=== PATIENT | male | born 1935 | race Caucasian/White ===

== ENCOUNTER 2021-07-30 23:58 | Observation (INO) ==
[2021-07-31] MEDS ORDERED: FUROSEMIDE 40 MG/4 ML VIAL IV ONE (00:43)
[2021-07-31 00:44] LABS: POC Blood Urea Nitrogen 42 mg/dL (6-20); POC CO2 24 mmol/L (22-30); POC Calcium, Ionized 1.15 mmEq/L (1.16-1.32); POC Chloride 99 mEq/L (96-108); POC Creatinine 1.7 mg/dL (0.6-1.2); POC Glucose, Random 126 mg/dL (70-105); POC Hematocrit 36 % (41-55); POC Potassium 4.6 mEql/L (3.3-5.1); POC Sodium 137 mEq/L (133-145)
--- NOTE | 2021-07-31 01:03 | Emergency Department Note ---
HPI General Chief complaint: Shortness of Breath/Dyspnea Stated complaint: sob Time Seen by Provider: 07/31/21 00:11 Source: EMS Mode of arrival: ambulatory Limitations: no limitations History of Present Illness HPI Narrative: Narrative: Patient is an 85-year-old male with history of CHF, chronic kidney disease, who presents with chief complaint of shortness of breath. Patient states over the past 5 days has been having some increasing shortness of breath as well as swelling in the bilateral lower extremities. He thinks it may be mild case of increased CHF. He states he gets worse when he lays flat at night, and otherwise denies no significant symptoms such as fever, headache, cough, nausea, vomiting, abdominal pain, changes in bowel movements or urinary symptoms. Related Data Home Medications Medication Instructions Recorded Confirmed saw palmetto 450 mg capsule 450 mg PO BID 08/21/15 07/30/21 spironolactone 25 mg tablet 25 mg PO QDAY 08/21/15 07/30/21 ascorbic acid (vitamin C) 1,000 mg 1 g PO BID tab 07/16/16 07/30/21 tablet cholecalciferol (vitamin D3) 25 1,000 unit PO QDAY cap 07/16/16 07/30/21 mcg (1,000 unit) capsule magnesium oxide 400 mg (241.3 mg 400 mg PO QDAY 07/16/16 07/30/21 magnesium) tablet omega-3 fatty acids 1,000 mg 1,250 mg PO BID cap 07/16/16 07/30/21 capsule apixaban 5 mg tablet 2.5 mg PO BID tab 06/24/21 07/30/21 trazodone 100 mg tablet 100 mg PO QHS PRN 06/24/21 07/30/21 valsartan 40 mg tablet 20 mg PO QDAY tab 06/24/21 07/30/21 tamsulosin 0.4 mg capsule 0.4 mg PO .EOD cap 06/30/21 07/30/21 torsemide 20 mg tablet 20 mg PO BID tab 06/30/21 07/30/21 torsemide 20 mg tablet 20 mg PO BID tab 06/30/21 07/30/21 Previous Rx's Medication Instructions Recorded Alive men's 50+ 1 mg PO QDAY #30 07/16/16 Brain--Mt-HD 950 mg PO QDAY #30 07/16/16 Florajen 3 probiotics 1 mg PO QDAY #30 07/16/16 melatonin 10 mg capsule 10 mg PO HS PRN #30 cap 07/16/16 sennosides 8.6 mg-docusate sodium 1 tab PO BID PRN #2 tab 07/16/16 50 mg tablet polyethylene glycol 3350 [Miralax] 17 g PO QDAY #30 each 12/11/20 allopurinol 100 mg tablet See Rx Instructions .ROUTE 06/18/21 .COMPLEX #30 tab metoprolol succinate 25 mg 12.5 mg PO QDAY #30 tab 06/30/21 tablet,extended release 24 hr benzonatate 100 mg capsule 100 mg PO Q8H PRN #20 cap 07/30/21 Allergies Allergy/AdvReac Type Severity Reaction Status Date / Time codeine AdvReac Severe Nausea Verified 07/30/21 14:24 Review of Systems ROS ROS Narrative: Narrative: All systems ED: reviewed and negative except as stated. 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) Pacemaker (Chronic) H/O adenoidectomy (Chronic) S/P foot surgery, right (Chronic) History of nasal septoplasty (Chronic 01/24/13) Hx of tonsillectomy (Chronic) Anorexia (Chronic) Dysphagia (Chronic) Insomnia (Chronic) Lentigo (Chronic) Prostate hypertrophy (Chronic) Seborrheic keratosis (Chronic) Weight loss (Chronic) Constipation (Acute) Hypotension (Chronic) Incomplete bladder emptying (Acute) Elevated uric acid in blood (Acute) Depression (Chronic) HFrEF (heart failure with reduced ejection fraction) (Chronic) CKD (chronic kidney disease) stage 3, GFR 30-59 ml/min (Chronic) Congestive heart failure (Acute) Moderate to severe mitral regurgitation (Acute) Severe tricuspid valve regurgitation (Acute) Abdominal pain (Acute) Constipation (Acute) Congestive heart failure (Acute) BPH loc w urin obs/LUTS (Acute) Acute left-sided thoracic back pain (Acute) Medical History Actinic keratosis Allergic rhinitis Anorexia Atrial fibrillation BPH (benign prostatic hypertrophy) with urinary obstruction Bradycardia CKD (chronic kidney disease) stage 3, GFR 30-59 ml/min Cough Depression PHQ-9: 13 02/2021 Dysphagia Dysthymic disorder Elevated uric acid in blood GERD (gastroesophageal reflux disease) HFrEF (heart failure with reduced ejection fraction) Hyperlipidemia Insomnia Ischemic heart disease Lentigo Benign Mastodynia Moderate to severe mitral regurgitation Prostate hypertrophy Continue tamsulosin 0.4 mg daily and double up on days where the stream seems to be slowing down Schedule for cystoscopy as an outpatient in anticipation of possible intervention in the future to include UroLift Pulmonary nodule Seborrheic keratosis Severe tricuspid valve regurgitation Weight loss Surgical History H/O adenoidectomy History of nasal septoplasty (01/24/13) Dr. Stephens Hx of tonsillectomy Pacemaker Pacemaker replaced 02/2010 S/P foot surgery, right 1986, broke heel, accident, fell off a truck Family History Daughter Malignant neoplasm of breast Unknown Hypertension Coronary artery disease Social History Smoking Status: Former smoker Alcohol Intake Frequency: does not drink Substance Use: does not use Exam Narrative Narrative: Narrative: Patient is sitting up in bed, talking normally and appropriately. He does not appear to be in acute discomfort or distress General Limitations: no limitations Head Head: Present atraumatic and normocephalic Eye Eye: Present normal appearance, PERRL and EOMI; Absent scleral icterus and conjunctival injection ENT ENT: Present normal oropharynx and mucous membranes moist Neck Neck: Present full ROM and trachea midline; Absent tenderness and lymphadenopathy Chest Chest: Present symmetric chest wall rise Respiratory Respiratory: Present normal lung sounds bilaterally; Absent respiratory distress, rales/crackles, wheezes, stridor and accessory muscle use Cardiovascular Cardiovascular: Present regular rate and normal rhythm; Absent systolic murmur and diastolic murmur Adbominal Abdominal: Present soft; Absent tenderness, guarding, rebound, rigidity and mass Extremities Extremities: Present pedal edema and pretibial edema; Absent tenderness and calf tenderness Back Back: Absent CVA tenderness (R), CVA tenderness (L) and spinous process tenderness Neurological Neurological: Present alert and oriented X3 Psychiatric Psychiatric: Present normal affect and normal mood Skin Skin: Present warm (WNL) and dry Course Vital Signs Vital signs: Vital Signs Temperature 99.7 F H 07/31/21 00:02 Pulse Rate 81 07/31/21 00:02 Blood Pressure 101/68 07/31/21 00:02 Pulse Oximetry (%) 93 07/31/21 00:02 Temperature 99.7 F H 07/31/21 00:02 Pulse Rate 80 07/31/21 00:56 Respiratory Rate 19 07/31/21 00:56 Blood Pressure 83/69 07/31/21 00:56 Pulse Oximetry (%) 98 07/31/21 00:56 MDM MDM Narrative Medical decision making narrative: Narrative: Patient is an 85-year-old male who presented with chief complaint of shortness of breath and CHF symptoms. Patient had a history and physical exam consistent with CHF exacerbation and acute on chronic kidney disease. Patient's BNP was significant elevated at 32,000, typically double of what he is at baseline. He also had an elevated creatinine 1.7 which is higher than his baseline creatinine of 1.2-1.3. Even after Lasix here in the emergency department he was only able to diurese 100 cc of urine. It does appear that he is intravascularly dry get has been retaining fluid in his third space. Chest x-ray showed no significant pulmonary edema, and he is not hypoxic here though he does get significantly short of breath when he lays flat. EKG was unremarkable for ischemic findings, but given the complexities of his LIANG as well as CHF I did feel that he would benefit from mission the hospital. The hospitalist wanted to delay admission for several hours to see if the patient would diurese any further, and after this time. With no further diuresis and only 40 cc of urine in his bladder he agreed to admission. Patient is agreeable to the plan at this time is no further concerns or questions. Lab Data Result diagrams: 07/31/21 00:30 Labs: Lab Results 07/31/21 07/31/21 Range/Units 00:30 00:30 WBC 6.7 (4.5-11.0) K/mcL RBC 3.70 L (4.63-6.08) M/mcL Hgb 11.4 L (13.7-17.5) g/dL Hct 33.7 L (40.1-51.0) % POC Hct 36 L (41-55) % MCV 91.1 (80.0-100.0) fL MCH 30.8 (26.0-34.0) pg MCHC 33.8 (31.0-36.0) g/dL RDW 16.6 H (11.5-14.5) % Plt Count 170 (140-440) K/mcL MPV 11.1 H (7.4-10.4) fL Neut % (Auto) 75.4 (38.0-78.0) % Lymph % (Auto) 13.2 L (15.5-49.0) % Mcminn % (Auto) 10.5 (1.0-12.0) % Eos % (Auto) 0.3 (0.0-7.0) % Baso % (Auto) 0.6 (0.0-2.0) % Lymph # (Auto) 0.88 L (1.50-4.80) K/mcL Mcminn # (Auto) 0.70 (0.10-0.90) K/mcL Eos # (Auto) 0.02 (0.00-0.70) K/mcL Baso # (Auto) 0.04 (0.00-0.30) K/mcL Absolute Neutrophils 5.05 (1.80-8.00) K/mcL POC Sodium 137 (133-145) mEq/L POC Potassium 4.6 (3.3-5.1) mEql/L POC Chloride 99 (96-108) mEq/L POC Total CO2 24 (22-30) mmol/L POC BUN 42 H (6-20) mg/dL POC Creatinine 1.7 H (0.6-1.2) mg/dL POC Glucose 126 H (70-105) mg/dL POC WB Ioniz Calcium 1.15 L (1.16-1.32) mmEq/L NT-Pro-B Natriuret Pep 17811.0 H (<450.0) pg/mL Procedures Other Procedure: EKG shows paced rhythm with rate of approximately 80. No obvious signs of ischemia. Occasional PVC. Discharge Plan Patient/Caregiver Discharge Instructions Pt seen by RESIDENTIAL PROPERTY CONSULTANT/PA only: No Clinical Impression: CHF exacerbation, LIANG (acute kidney injury) Patient Disposition: Xfer As Inpt ([facility]) Follow up with: Vahid Vivas MD [Primary Care Provider] - Prescriptions: No Action allopurinol 100 mg tablet See Rx Instructions .ROUTE .COMPLEX Qty: 30 RF: 6 spironolactone 25 mg tablet 25 mg PO QDAY RF: 0 saw palmetto 450 mg capsule 450 mg PO BID RF: 0 torsemide 20 mg tablet 20 mg PO BID RF: 0 torsemide 20 mg tablet 20 mg PO BID RF: 0 metoprolol succinate 25 mg tablet extended release 24 hr 12.5 mg PO QDAY Qty: 30 RF: 3 tamsulosin 0.4 mg capsule 0.4 mg PO .EOD RF: 0 trazodone 100 mg tablet 100 mg PO QHS PRNRF: 0 apixaban 5 mg tablet 2.5 mg PO BID RF: 0 valsartan 40 mg tablet 20 mg PO QDAY RF: 0 benzonatate [Tessalon Perles] 100 mg capsule 100 mg PO Q8H PRN (Reason: cough) Qty: 20 RF: 0 polyethylene glycol 3350 [Miralax] 17 gram powder in packet 17 g PO QDAY Qty: 30 RF: 0 ascorbic acid (vitamin C) 1,000 mg tablet 1 g PO BID RF: 0 omega-3 fatty acids [Fish Oil Concentrate] 1,000 mg capsule 1,250 mg PO BID RF: 0 magnesium oxide 400 mg tablet 400 mg PO QDAY RF: 0 cholecalciferol (vitamin D3) 1,000 unit capsule 1,000 unit PO QDAY RF: 0 Florajen 3 probiotics 1 mg PO QDAY Qty: 30 RF: 0 sennosides-docusate sodium [Senokot-S] 8.6-50 mg tablet 1 tab PO BID PRN (Reason: constipation) Qty: 2 RF: 0 Alive men's 50+ 1 mg PO QDAY Qty: 30 RF: 0 melatonin 10 mg capsule 10 mg PO HS PRN (Reason: sleep) Qty: 30 RF: 0 Brain--Mt-HD 950 mg PO QDAY Qty: 30 RF: 0
[2021-07-31 01:18] LABS: Basophils # (Auto) 0.04 K/mcL (0.00-0.30); Basophils % (Auto) 0.6 % (0.0-2.0); Eosinophils # (Auto) 0.02 K/mcL (0.00-0.70); Eosinophils % (Auto) 0.3 % (0.0-7.0); Hematocrit 33.7 % (40.1-51.0); Hemoglobin 11.4 g/dL (13.7-17.5); Lymphocytes # (Auto) 0.88 K/mcL (1.50-4.80); Lymphocytes % (Auto) 13.2 % (15.5-49.0); Mean Cell Volume 91.1 fL (80.0-100.0); Mean Corpuscular HGB Conc 33.8 g/dL (31.0-36.0); Mean Platelet Volume 11.1 fL (7.4-10.4); Monocytes % (Auto) 10.5 % (1.0-12.0); Neutrophils % (Auto) 75.4 % (38.0-78.0); Platelet Count 170 K/mcL (140-440); Red Cell Distribution Width 16.6 % (11.5-14.5); WBC 6.7 K/mcL (4.5-11.0)
[2021-07-31] MEDS ORDERED: 0.9 % SODIUM CHLORIDE 250 ML IV ONE (01:44)
[2021-07-31] MEDS ORDERED: ONDANSETRON 4 MG/2 ML VIAL IV PRN ×3 (03:52→08:44)
--- NOTE | 2021-07-31 04:03 | XRay Report ---
CLINICAL INFORMATION: dyspnea COMPARISON: 06/25/2020 FINDINGS: Marked cardiomegaly is unchanged. Implantable cardioverter defibrillator remains in stable satisfactory position. Mediastinum is unremarkable. The pulmonary vessels now mildly distended and there is minimal interstitial edema compatible with CHF. Moderate right pleural effusion has increased. Small left pleural effusion is also increased. Moderate atelectasis both medial bases also worsening. IMPRESSION: Mild CHF-new Moderate right and small left pleural effusions-worsening Moderate atelectasis or, less likely, infiltrate in both medial bases-worsening Interpreted and Authenticated by: Chace Cuellar 07/31/21
[2021-07-31] MEDS ORDERED: 0.9 % SODIUM CHLORIDE 10 ML SYRINGE IV SCH (06:00)
--- NOTE | 2021-07-31 07:01 | EKG ---
[facility] Test Date: 2021-07-31 Pat Name: Zaid Marroquin Department: ED Room: Gender: Male Senior Corporate Strategy Manager: : 1935 Requested By: Zaire Franks Order Number: [id number] Reading MD: Abiel Glover Measurements Intervals [place] Rate: 80 P: SC: QRS: -42 QRSD: 162 T: 143 QT: 446 QTc: 515 Interpretive Statements Afib/flut and V-paced complexes No further analysis attempted due to paced rhythm unchanged from prior Electronically Signed On 07-31-2021 7:00:45 PDT by Abiel Glover /store/[email or web address]/[id number]/[id number]
[2021-07-31] MEDS ORDERED: guaiFENesin/DEXTROMETHORPHAN ORAL SOL PO PRN ×2 (08:24→08:44)
[2021-07-31] MEDS ORDERED: BENZONATATE 100 MG CAPSULE PO PRN ×2 (08:32→08:44)
[2021-07-31] MEDS ORDERED: MELATONIN 10 MG PO PRN (08:32)
[2021-07-31] MEDS ORDERED: SENNOSIDES/DOCUSATE SODIUM 1 TAB TABLET PO PRN ×2 (08:32→08:44)
[2021-07-31] MEDS ORDERED: traZODone HCL 100 MG TABLET PO PRN ×2 (08:32→08:44)
--- NOTE | 2021-07-31 08:32 | Internal Med History&Physical ---
HPI History of Present Illness Patient information: Note initiated : 07/31/21 at 8:25 am Service Date, if different from initiated Date: [] Patient: Zaid Marroquin 85 y/o M admitted on 07/31/21 for SOB . Chief Complaint: [CHF exacerbation] History of present illness: Mr. Marroquin is a 85 year old M history of systolic CHF, BPH, atrial fibrillation s/p pacemaker placement, CKD III, presenting with 1 week history of general body weakness, dyspnea, nonproductive cough, and dizziness. He was in his usual state of health until a week ago when he had gradual onset, gradually worsening of general body weakness, dyspnea, nonproductive cough, and dizziness. He denies any sputum production or respiratory wheezings. He denies any chest pain or palpitations. He denies any fever, chills, or diaphoresis. He denies any leg swelling or unintentional weight gain. He denies any orthopnea and he sleeps on one pillow. Due to the worsening of his symptoms, he decided to come to the ED yesterday night for further evaluations. Vital signs at ED presentations within normal limits. BNP elevated 32,500. Rest of the labs are at his baseline. Chest x-ray showing evidence of CHF with pulmonary edema as well as bilateral mild to moderate pleural effusions. Constitutional Constitutional: Present fatigue and weakness; Absent chills, excessive sweating and fever(s) EENT Eyes: Absent blurry vision, change in vision, loss of vision and other visual disturbances Ears: Absent decreased hearing and tinnitus Nose, mouth and throat: Absent abnormal hearing, dry mouth, headache(s), nasal congestion and sore throat Cardiovascular Cardiovascular: Absent chest pain, chest pain at rest, edema, irregular heart rhythm and palpatations Respiratory Respiratory: Present cough, dyspnea and dyspnea on exertion; Absent wheezing Gastrointestinal Gastrointestinal: Absent abdominal pain, constipation, diarrhea, nausea and vomiting Musculoskeletal Musculoskeletal: Absent back pain, deformity, limited range of motion, muscle cramps, muscle weakness and numbness Integumentary Integumentary: Absent lesions, rash and wounds Neurological Neurological: Present dizziness and weakness; Absent focal weakness, headache(s) and numbness Psychiatric Psychiatric: Absent anxiety, depression and hallucinations PFSH PFSH All Active Problems (Updated 07/31/21 @ 08:37 by Brennan Abraham MD) Anemia, normocytic normochromic (Acute) CHF exacerbation (Acute) LIANG (acute kidney injury) (Acute) Cough (Acute) GERD (gastroesophageal reflux disease) (Chronic) Allergic rhinitis (Chronic) Pulmonary nodule (Chronic) Actinic keratosis (Chronic) Mastodynia (Chronic) Atrial fibrillation (Chronic) Hyperlipidemia (Chronic) Ischemic heart disease (Chronic) 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) Pacemaker (Chronic) H/O adenoidectomy (Chronic) S/P foot surgery, right (Chronic) History of nasal septoplasty (Chronic 01/24/13) Hx of tonsillectomy (Chronic) Anorexia (Chronic) Dysphagia (Chronic) Insomnia (Chronic) Lentigo (Chronic) Prostate hypertrophy (Chronic) Seborrheic keratosis (Chronic) Weight loss (Chronic) Constipation (Acute) Hypotension (Chronic) Incomplete bladder emptying (Acute) Elevated uric acid in blood (Acute) Depression (Chronic) HFrEF (heart failure with reduced ejection fraction) (Chronic) CKD (chronic kidney disease) stage 3, GFR 30-59 ml/min (Chronic) Congestive heart failure (Acute) Moderate to severe mitral regurgitation (Acute) Severe tricuspid valve regurgitation (Acute) Abdominal pain (Acute) Constipation (Acute) Congestive heart failure (Acute) BPH loc w urin obs/LUTS (Acute) Acute left-sided thoracic back pain (Acute) Medical History Actinic keratosis Allergic rhinitis Anorexia Atrial fibrillation BPH (benign prostatic hypertrophy) with urinary obstruction Bradycardia CKD (chronic kidney disease) stage 3, GFR 30-59 ml/min Cough Depression PHQ-9: 13 02/2021 Dysphagia Dysthymic disorder Elevated uric acid in blood GERD (gastroesophageal reflux disease) HFrEF (heart failure with reduced ejection fraction) Hyperlipidemia Insomnia Ischemic heart disease Lentigo Benign Mastodynia Moderate to severe mitral regurgitation Prostate hypertrophy Continue tamsulosin 0.4 mg daily and double up on days where the stream seems to be slowing down Schedule for cystoscopy as an outpatient in anticipation of possible intervention in the future to include UroLift Pulmonary nodule Seborrheic keratosis Severe tricuspid valve regurgitation Weight loss Surgical History H/O adenoidectomy History of nasal septoplasty (01/24/13) Dr. Stephens Hx of tonsillectomy Pacemaker Pacemaker replaced 02/2010 S/P foot surgery, right 1986, broke heel, accident, fell off a truck Family History Daughter Malignant neoplasm of breast Unknown Hypertension Coronary artery disease Social History marital status: occupational status: retired smoking status: Former smoker quit date: 11/21/89 alcohol intake frequency: does not drink substance use type: does not use MEDS/ALLERGIES Home Medications and Allergies Home Medications Medication Instructions Recorded Confirmed Type saw palmetto 450 mg capsule 450 mg PO BID 08/21/15 07/30/21 History spironolactone 25 mg tablet 25 mg PO QDAY 08/21/15 07/30/21 History Alive men's 50+ 1 mg PO QDAY #30 07/16/16 07/30/21 Rx Brain--Mt-HD 950 mg PO QDAY #30 07/16/16 07/30/21 Rx Florajen 3 probiotics 1 mg PO QDAY #30 07/16/16 07/30/21 Rx ascorbic acid (vitamin C) 1,000 mg 1 g PO BID tab 07/16/16 07/30/21 History tablet cholecalciferol (vitamin D3) 25 1,000 unit PO QDAY cap 07/16/16 07/30/21 History mcg (1,000 unit) capsule magnesium oxide 400 mg (241.3 mg 400 mg PO QDAY 07/16/16 07/30/21 History magnesium) tablet melatonin 10 mg capsule 10 mg PO HS PRN #30 cap 07/16/16 07/30/21 Rx omega-3 fatty acids 1,000 mg 1,250 mg PO BID cap 07/16/16 07/30/21 History capsule sennosides 8.6 mg-docusate sodium 1 tab PO BID PRN #2 tab 07/16/16 07/30/21 Rx 50 mg tablet polyethylene glycol 3350 [Miralax] 17 g PO QDAY #30 each 12/11/20 07/30/21 Rx allopurinol 100 mg tablet See Rx Instructions .ROUTE 06/18/21 07/30/21 Rx .COMPLEX #30 tab apixaban 5 mg tablet 2.5 mg PO BID tab 06/24/21 07/30/21 History trazodone 100 mg tablet 100 mg PO QHS PRN 06/24/21 07/30/21 History valsartan 40 mg tablet 20 mg PO QDAY tab 06/24/21 07/30/21 History metoprolol succinate 25 mg 12.5 mg PO QDAY #30 tab 06/30/21 07/30/21 Rx tablet,extended release 24 hr tamsulosin 0.4 mg capsule 0.4 mg PO .EOD cap 06/30/21 07/30/21 History torsemide 20 mg tablet 20 mg PO BID tab 06/30/21 07/30/21 History torsemide 20 mg tablet 20 mg PO BID tab 06/30/21 07/30/21 History benzonatate 100 mg capsule 100 mg PO Q8H PRN #20 cap 07/30/21 07/30/21 Rx Allergies Allergy/AdvReac Type Severity Reaction Status Date / Time codeine AdvReac Severe Nausea Verified 07/30/21 14:24 EXAM Constitutional Vitals: Temp Pulse Resp BP Pulse Ox 36.6 C 82 16 90/58 93 07/31/21 07:46 07/31/21 07:46 07/31/21 07:46 07/31/21 07:46 07/31/21 07:46 General appearance: cooperative and no acute distress Head Head exam: Present atraumatic and normocephalic Eye Eye exam: Present EOMI and PERRL ENT ENT exam: Present mucous membranes moist, normal exam and normal external ear exam Neck Neck exam: Present normal inspection; Absent lymphadenopathy, tenderness and thyromegaly Respiratory Respiratory exam: Present decreased breath sounds; Absent accessory muscle use, respiratory distress and wheezes Cardiovascular Cardiovascular exam: Present irregular rhythm; Absent JVD Additional comments: pacemaker in place GI/Abdominal GI/Abdominal exam: Present normal bowel sounds and soft; Absent organomegaly and tenderness Rectal Rectal exam: Present deferred Extremities Exam Extremities exam: Present full ROM, normal capillary refill, normal inspection and pedal edema; Absent tenderness Neurological Exam Neurological exam: Present alert, CN II-XII intact and oriented X3; Absent motor sensory deficit Psychiatric Psychiatric exam: Present normal affect and normal mood; Absent anxious and depressed Skin Skin exam: Present dry and intact DATA Data Completed and Pending Labs: Labs from last 24 hours 07/31/21 07/31/21 00:30 00:30 WBC 6.7 RBC 3.70 L Hgb 11.4 L Hct 33.7 L POC Hct 36 L MCV 91.1 MCH 30.8 MCHC 33.8 RDW 16.6 H Plt Count 170 MPV 11.1 H Neut % (Auto) 75.4 Lymph % (Auto) 13.2 L [place] % (Auto) 10.5 Eos % (Auto) 0.3 Baso % (Auto) 0.6 Lymph # (Auto) 0.88 L [place] # (Auto) 0.70 Eos # (Auto) 0.02 Baso # (Auto) 0.04 Absolute Neutrophils 5.05 POC Sodium 137 POC Potassium 4.6 POC Chloride 99 POC Total CO2 24 POC BUN 42 H POC Creatinine 1.7 H POC Glucose 126 H POC WB Ioniz Calcium 1.15 L NT-Pro-B Natriuret Pep 50586.0 H A/P Assessment and plan (1) CHF exacerbation: Status: Acute (2) Atrial fibrillation: Status: Chronic Qualifiers: Atrial fibrillation type: paroxysmal Qualified Code(s): I48.0 - Paroxysmal atrial fibrillation (3) Pacemaker: Status: Chronic Comment: Pacemaker replaced 02/2010 (4) BPH (benign prostatic hypertrophy) with urinary obstruction: Status: Chronic (5) HFrEF (heart failure with reduced ejection fraction): Status: Chronic (6) CKD (chronic kidney disease) stage 3, GFR 30-59 ml/min: Status: Chronic (7) Anemia, normocytic normochromic: Status: Acute Narrative A/P Narrative: Assessment and Plans: 1. Systolic CHF exacerbation: Observation med surg telemetry 2D echocardiogram from June 2021 showing reduced left ventricular functions with LVEF <20%. Metoprolol ER Valsartan Aldactone d/c Torsemide, switch to Lasix 20mg IV BID for the time being Intake and output Daily weigh 2L/day fluid restriction Supplemental oxygen as needed titrate to achieve spo2 >=92% Physical therapy Occupational therapy 2. Atrial fibrillation: Metoprolol ER for rate control Eliquis as anticoagulant 3. BPH: Continue Flomax 4. CKD stage 3: Avoid nephrotoxic agents Saline lock with fluid restriction GI ppx: Not currently indicated DVT ppx: Eliquis Code status: Full Prognosis: stable Disposition: observation med surg telemetry Time Spent With Patient Time: Total time spent is greater than 50% in coordination of care (as documented) at patient's floor/unit and/or counseling patient: Total time spent with greater than 50% in coordination of care (as documented) at patient's floor/unit and/or counseling patient:: Greater than 35 minutes
[2021-07-31] MEDS ORDERED: ACETAMINOPHEN 325 MG TABLET PO PRN (08:44)
[2021-07-31] MEDS ORDERED: IPRATROPIUM/ALBUTEROL 3 ML AMPUL.NEB NEB PRN (08:44)
[2021-07-31] MEDS ORDERED: TAMSULOSIN 0.4 MG CAPSULE PO SCH (08:45)
[2021-07-31] MEDS ORDERED: [UNRECOGNIZED DRUG - OTHER] PO SCH (09:00)
[2021-07-31] MEDS ORDERED: FUROSEMIDE 20 MG/2 ML VIAL IV SCH (09:00)
[2021-07-31] MEDS ORDERED: LACTOBACILLUS 1 CAPSULE PO SCH (09:00)
[2021-07-31] MEDS ORDERED: POLYETHYLENE GLYCOL 3350 17 GM PACKET PO SCH (09:00)
[2021-07-31] MEDS ORDERED: METOPROLOL SUCCINATE 25 MG TAB.XL.24H PO SCH (09:00)
[2021-07-31] MEDS ORDERED: MELATONIN 3 MG TABLET PO PRN (09:00)
[2021-07-31] MEDS ORDERED: [UNRECOGNIZED DRUG - OTHER] PO SCH (09:00)
[2021-07-31] MEDS ORDERED: MULTIVIT,THER IRON,CA,FA & MIN 1 TABLET PO SCH (09:00)
[2021-07-31] MEDS ORDERED: HEPARIN 5,000 UNIT/ML VIAL SQ SCH (09:00)
[2021-07-31] MEDS ORDERED: APIXABAN 5 MG TABLET PO SCH (09:00)
[2021-07-31] MEDS ORDERED: VALSARTAN 40 MG PO SCH (09:00)
[2021-07-31] MEDS ORDERED: MAGNESIUM OXIDE 400 MG TABLET PO SCH (09:00)
[2021-07-31] MEDS ORDERED: ALLOPURINOL 100 MG TABLET PO SCH (09:00)
[2021-07-31] MEDS ORDERED: VITAMIN D3 1,000 UNIT TABLET PO SCH (09:00)
[2021-07-31] MEDS ORDERED: ASCORBIC ACID 500 MG TABLET PO SCH (09:00)
[2021-07-31] MEDS ORDERED: SPIRONOLACTONE 25 MG TABLET PO SCH (09:00)
[2021-07-31] MEDS: FUROSEMIDE 20 MG/2 ML VIAL IV SCH ×2 (09:25→21:14)
[2021-07-31] MEDS: SPIRONOLACTONE 25 MG TABLET PO SCH (09:25)
[2021-07-31] MEDS: LOSARTAN 25 MG TABLET PO SCH (09:26)
[2021-07-31] MEDS: LACTOBACILLUS 1 CAPSULE PO SCH (09:26)
[2021-07-31] MEDS: ASCORBIC ACID 500 MG TABLET PO SCH ×2 (09:28→21:14)
[2021-07-31] MEDS: MULTIVIT,THER IRON,CA,FA & MIN 1 TABLET PO SCH (09:28)
[2021-07-31] MEDS: FISH OIL 1,000 MG CAPSULE PO SCH ×2 (09:29→21:14)
[2021-07-31] MEDS: DOCUSATE SODIUM 100 MG CAPSULE PO SCH ×2 (09:29→21:14)
[2021-07-31] MEDS: APIXABAN 5 MG TABLET PO SCH ×2 (09:29→21:14)
[2021-07-31] MEDS: MAGNESIUM OXIDE 400 MG TABLET PO SCH (09:30)
[2021-07-31] MEDS: POLYETHYLENE GLYCOL 3350 17 GM PACKET PO SCH (09:31)
[2021-07-31] MEDS: [UNRECOGNIZED DRUG - OTHER] PO SCH (09:33)
[2021-07-31] MEDS: METOPROLOL SUCCINATE 25 MG TAB.XL.24H PO SCH (09:33)
[2021-07-31] MEDS: VITAMIN D3 1,000 UNIT TABLET PO SCH (09:34)
[2021-07-31] MEDS: ALLOPURINOL 100 MG TABLET PO SCH (09:34)
[2021-07-31] MEDS: 0.9 % SODIUM CHLORIDE 10 ML SYRINGE IV SCH ×4 (13:27→22:52)
[2021-07-31] MEDS ORDERED: SENNOSIDES 1 TABLET PO SCH (21:00)
[2021-08-01] MEDS: 0.9 % SODIUM CHLORIDE 10 ML SYRINGE IV SCH ×2 (05:36)
[2021-08-01] MEDS ORDERED: TAMSULOSIN 0.4 MG CAPSULE PO SCH (09:00)
[2021-08-01] MEDS: FISH OIL 1,000 MG CAPSULE PO SCH (09:10)
[2021-08-01] MEDS: DOCUSATE SODIUM 100 MG CAPSULE PO SCH (09:10)
[2021-08-01] MEDS: FUROSEMIDE 20 MG/2 ML VIAL IV SCH (09:10)
[2021-08-01] MEDS: MAGNESIUM OXIDE 400 MG TABLET PO SCH (09:10)
[2021-08-01] MEDS: LACTOBACILLUS 1 CAPSULE PO SCH (09:10)
[2021-08-01] MEDS: LOSARTAN 25 MG TABLET PO SCH (09:10)
[2021-08-01] MEDS: APIXABAN 5 MG TABLET PO SCH (09:11)
[2021-08-01] MEDS: ASCORBIC ACID 500 MG TABLET PO SCH (09:11)
[2021-08-01] MEDS: MULTIVIT,THER IRON,CA,FA & MIN 1 TABLET PO SCH (09:11)
[2021-08-01] MEDS: SPIRONOLACTONE 25 MG TABLET PO SCH (09:11)
[2021-08-01] MEDS: ALLOPURINOL 100 MG TABLET PO SCH (09:11)
[2021-08-01] MEDS: METOPROLOL SUCCINATE 25 MG TAB.XL.24H PO SCH (09:12)
[2021-08-01] MEDS: VITAMIN D3 1,000 UNIT TABLET PO SCH (09:12)
[2021-08-01] MEDS: POLYETHYLENE GLYCOL 3350 17 GM PACKET PO SCH (09:12)
[2021-08-01] MEDS: [UNRECOGNIZED DRUG - OTHER] PO SCH (09:13)
--- NOTE | 2021-08-01 10:51 | Discharge Summary ---
Discharge Provider Provider Patient information: Note initiated : 08/01/21 at 10:49 am Service Date, if different from initiated Date: [] Patient: Zaid Marroquin 85 y/o M admitted on 07/31/21 for SOB . Chief Complaint: [CHF exacerbation] Date of admission: 07/31/21 04:08 Discharge date: 08/01/21 Primary care physician: Vahid Vivas MD Consults: 07/31/21 Consult to Physician [CONS] Stat Comment: Consulting Provider: Brennan Abraham Reason For Exam: Physician to Consult Discharge Meds Discharge Medications Home Medications saw palmetto 450 mg capsule 450 mg PO BID 08/21/15 [History Confirmed 07/30/21 Last Taken Unknown] spironolactone 25 mg tablet 25 mg PO QDAY 08/21/15 [History Confirmed 07/30/21 Last Taken Unknown] Alive men's 50+ 1 mg PO QDAY #30 07/16/16 [Rx Confirmed 07/30/21 Last Taken Unknown] Brain--Mt-HD 950 mg PO QDAY #30 07/16/16 [Rx Confirmed 07/30/21 Last Taken Unknown] Florajen 3 probiotics 1 mg PO QDAY #30 07/16/16 [Rx Confirmed 07/30/21 Last Taken Unknown] ascorbic acid (vitamin C) 1,000 mg tablet 1 g PO BID tab 07/16/16 [History Confirmed 07/30/21 Last Taken Unknown] cholecalciferol (vitamin D3) 25 mcg (1,000 unit) capsule 1,000 unit PO QDAY cap 07/16/16 [History Confirmed 07/30/21 Last Taken Unknown] magnesium oxide 400 mg (241.3 mg magnesium) tablet 400 mg PO QDAY 07/16/16 [History Confirmed 07/30/21 Last Taken Unknown] melatonin 10 mg capsule 10 mg PO HS PRN #30 cap 07/16/16 [Rx Confirmed 07/30/21 Last Taken Unknown] omega-3 fatty acids 1,000 mg capsule 1,250 mg PO BID cap 07/16/16 [History Confirmed 07/30/21 Last Taken Unknown] sennosides 8.6 mg-docusate sodium 50 mg tablet 1 tab PO BID PRN #2 tab 07/16/16 [Rx Confirmed 07/30/21 Last Taken Unknown] polyethylene glycol 3350 [Miralax] 17 g PO QDAY #30 each 12/11/20 [Rx Confirmed 07/30/21 Last Taken Unknown] allopurinol 100 mg tablet See Rx Instructions .ROUTE .COMPLEX #30 tab 06/18/21 [Rx Confirmed 07/30/21 Last Taken Unknown] apixaban 5 mg tablet 2.5 mg PO BID tab 06/24/21 [History Confirmed 07/30/21 Last Taken Unknown] trazodone 100 mg tablet 100 mg PO QHS PRN 06/24/21 [History Confirmed 07/30/21 Last Taken Unknown] valsartan 40 mg tablet 20 mg PO QDAY tab 06/24/21 [History Confirmed 07/30/21 Last Taken Unknown] metoprolol succinate 25 mg tablet,extended release 24 hr 12.5 mg PO QDAY #30 tab 06/30/21 [Rx Confirmed 07/30/21 Last Taken Unknown] tamsulosin 0.4 mg capsule 0.4 mg PO .EOD cap 06/30/21 [History Confirmed 07/30/21 Last Taken Unknown] torsemide 20 mg tablet 20 mg PO BID tab 06/30/21 [History Confirmed 07/30/21 Last Taken Unknown] benzonatate 100 mg capsule 100 mg PO Q8H PRN #20 cap 07/30/21 [Rx Confirmed 07/30/21 Last Taken Unknown] COURSE Hospital Course Hospital course: Patient was admitted on July 31, 2021 for CHF exacerbations. He had a recent echocardiogram showing LVEF less than 20%. He has been tolerating room air. Aggressive diuretic therapy with Lasix 20 mg IV twice daily were given together with metoprolol extended release, valsartan, and Aldactone. Intake and output measurement, daily weight, and 4 with restrictions were all implemented. By day to hospitalizations, patient recovered quicker than expectations, and reached clinical stability's. As such, decision was made to discharge patient home with instruction to follow-up with PCP in 1 weeks given to patient. All questions were answered prior to patient being physically discharged. Discharge diagnosis: CHF exacerbation Time Spent with Patient Time attestation: Total time spent providing and/or coordinating discharge services: Patient was admitted on July 31, 2021 for CHF exacerbations. He had a r ecent echocardiogram showing LVEF less than 20%. He has been tolerating room air. Aggressive diuretic therapy with Lasix 20 mg IV twice daily were given together with metoprolol extended release, valsartan, and Aldactone. Intake and output measurement, daily weight, and 4 with restrictions were all implemented. By day to hospitalizations, patient recovered quicker than expectations, and reached clinical stability's. As such, decision was made to discharge patient home with instruction to follow-up with PCP in 1 weeks given to patient. All questions were answered prior to patient being physically discharged. EXAM Constitutional Vitals: Temp Pulse Resp BP Pulse Ox 36.3 C 81 14 92/66 94 08/01/21 06:34 08/01/21 06:34 08/01/21 06:34 08/01/21 06:34 08/01/21 06:34 General appearance: cooperative and no acute distress Head Head exam: Present atraumatic and normocephalic Eye Eye exam: Present EOMI and PERRL ENT ENT exam: Present mucous membranes moist, normal exam and normal external ear exam Neck Neck exam: Present normal inspection; Absent lymphadenopathy, tenderness and thyromegaly Respiratory Respiratory exam: Present rhonchi; Absent accessory muscle use, respiratory distress and wheezes Cardiovascular Cardiovascular exam: Present normal rate and rhythm; Absent JVD GI/Abdominal GI/Abdominal exam: Present normal bowel sounds and soft; Absent organomegaly and tenderness Rectal Rectal exam: Present deferred Extremities Exam Extremities exam: Present full ROM, normal capillary refill, normal inspection and pedal edema; Absent tenderness Neurological Exam Neurological exam: Present alert, CN II-XII intact and oriented X3; Absent motor sensory deficit Psychiatric Psychiatric exam: Present normal affect and normal mood; Absent anxious and depressed Skin Skin exam: Present dry and intact Discharge Plan Patient/Caregiver Discharge Instructions Activity: increase activity as tolerated Diet: Regular Diet Prescriptions: Continued allopurinol 100 mg tablet See Rx Instructions .ROUTE .COMPLEX Qty: 30 RF: 6 spironolactone 25 mg tablet 25 mg PO QDAY RF: 0 saw palmetto 450 mg capsule 450 mg PO BID RF: 0 torsemide 20 mg tablet 20 mg PO BID RF: 0 metoprolol succinate 25 mg tablet extended release 24 hr 12.5 mg PO QDAY Qty: 30 RF: 3 tamsulosin 0.4 mg capsule 0.4 mg PO .EOD RF: 0 trazodone 100 mg tablet 100 mg PO QHS PRNRF: 0 apixaban 5 mg tablet 2.5 mg PO BID RF: 0 valsartan 40 mg tablet 20 mg PO QDAY RF: 0 benzonatate [Tessalon Perles] 100 mg capsule 100 mg PO Q8H PRN (Reason: cough) Qty: 20 RF: 0 polyethylene glycol 3350 [Miralax] 17 gram powder in packet 17 g PO QDAY Qty: 30 RF: 0 ascorbic acid (vitamin C) 1,000 mg tablet 1 g PO BID RF: 0 omega-3 fatty acids [Fish Oil Concentrate] 1,000 mg capsule 1,250 mg PO BID RF: 0 magnesium oxide 400 mg tablet 400 mg PO QDAY RF: 0 cholecalciferol (vitamin D3) 1,000 unit capsule 1,000 unit PO QDAY RF: 0 Florajen 3 probiotics 1 mg PO QDAY Qty: 30 RF: 0 sennosides-docusate sodium [Senokot-S] 8.6-50 mg tablet 1 tab PO BID PRN (Reason: constipation) Qty: 2 RF: 0 Alive men's 50+ 1 mg PO QDAY Qty: 30 RF: 0 melatonin 10 mg capsule 10 mg PO HS PRN (Reason: sleep) Qty: 30 RF: 0 Brain--Mt-HD 950 mg PO QDAY Qty: 30 RF: 0 Discontinued torsemide 20 mg tablet 20 mg PO BID RF: 0 Follow Up Plan Follow up with: Vahid Vivas MD [Primary Care Provider] - Patient Disposition: Home, Self-Care Prognosis: Good Rehab Potential: Good I certify that the patient requires SNF services: No Overall status at discharge: patient is back to baseline Discharge Orders: Discharge Order (Routine); Ordered 08/01/21 Ordered By: Brennan Abraham
== END 2021-08-01 13:40 | disposition home or self-care (01) ==
LOC: ED 23:58 → MEDSUR 07-31 04:08 → INTOOBSV 07-31 04:08
PROVIDERS: ADMIT Internal Medicine; ATTEND Internal Medicine

== ENCOUNTER 2021-09-17 03:19 | Inpatient (IN) ==
[2021-09-17] MEDS ORDERED: morphine 4 MG/ML VIAL IV ONE (04:40)
[2021-09-17 04:51] LABS: POC Blood Urea Nitrogen 45 mg/dL (6-20); POC CO2 28 mmol/L (22-30); POC Calcium, Ionized 1.08 mmEq/L (1.16-1.32); POC Chloride 96 mEq/L (96-108); POC Glucose, Random 122 mg/dL (70-105); POC Hematocrit 37 % (41-55); POC Potassium 4.2 mEql/L (3.3-5.1); POC Sodium 136 mEq/L (133-145)
[2021-09-17 05:12] LABS: Basophils # (Auto) 0.02 K/mcL (0.00-0.30); Basophils % (Auto) 0.2 % (0.0-2.0); Eosinophils # (Auto) 0.02 K/mcL (0.00-0.70); Eosinophils % (Auto) 0.2 % (0.0-7.0); Hematocrit 36.5 % (40.1-51.0); Hemoglobin 11.5 g/dL (13.7-17.5); Lymphocytes # (Auto) 0.92 K/mcL (1.50-4.80); Lymphocytes % (Auto) 10.9 % (15.5-49.0); Mean Cell Volume 91.9 fL (80.0-100.0); Mean Corpuscular HGB Conc 31.5 g/dL (31.0-36.0); Mean Platelet Volume 10.7 fL (7.4-10.4); Monocytes # (Auto) 0.76 K/mcL (0.10-0.90); Neutrophils % (Auto) 79.7 % (38.0-78.0); Platelet Count 186 K/mcL (140-440); RBC 3.97 M/mcL (4.63-6.08); Red Cell Distribution Width 17.2 % (11.5-14.5); WBC 8.4 K/mcL (4.5-11.0)
[2021-09-17] MEDS ORDERED: ONDANSETRON 4 MG/2 ML VIAL IV PRN ×2 (05:17→09:18)
[2021-09-17] MEDS ORDERED: morphine 15 MG TABLET PO PRN (05:17)
--- NOTE | 2021-09-17 05:26 | Emergency Department Note ---
HPI General Chief complaint: Trauma Stated complaint: Fall R hip pain Time Seen by Provider: 09/17/21 03:33 Source: patient Mode of arrival: ambulatory Limitations: no limitations History of Present Illness HPI Narrative: Narrative: Patient is an 85-year-old male who presented with chief complaint of fall. Patient had mechanical fall at home where he excellently tripped and fell, falling backwards onto his right hip and hitting his head. He did not lose consciousness, but is on Xarelto for blood thinner. His primary complaint is right hip pain, stating that he has been unable to bear weight on that hip since then. He denies any headache, neck pain, numbness tingling, chest pain, shortness of breath, nausea, vomiting, abdominal pain, changes in bowel movements or urinary symptoms. Related Data Home Medications Medication Instructions Recorded Confirmed spironolactone 25 mg tablet 25 mg PO QDAY 08/21/15 09/17/21 ascorbic acid (vitamin C) 1,000 mg 1 g PO BID tab 07/16/16 09/17/21 tablet magnesium oxide 400 mg (241.3 mg 400 mg PO QDAY 07/16/16 09/17/21 magnesium) tablet omega-3 fatty acids 1,000 mg 1,250 mg PO BID cap 07/16/16 09/17/21 capsule apixaban 5 mg tablet 2.5 mg PO BID tab 06/24/21 09/17/21 trazodone 100 mg tablet 100 mg PO QHS PRN 06/24/21 09/17/21 valsartan 40 mg tablet 20 mg PO QDAY tab 06/24/21 09/17/21 tamsulosin 0.4 mg capsule 0.4 mg PO .EOD cap 06/30/21 09/17/21 torsemide 20 mg tablet 20 mg PO BID tab 06/30/21 09/17/21 Previous Rx's Medication Instructions Recorded Alive men's 50+ 1 mg PO QDAY #30 07/16/16 polyethylene glycol 3350 [Miralax] 17 g PO QDAY #30 each 12/11/20 allopurinol 100 mg tablet See Rx Instructions .ROUTE 06/18/21 .COMPLEX #30 tab metoprolol succinate 25 mg 12.5 mg PO QDAY #30 tab 06/30/21 tablet,extended release 24 hr Allergies Allergy/AdvReac Type Severity Reaction Status Date / Time codeine AdvReac Severe Nausea Verified 09/17/21 03:21 Review of Systems ROS ROS Narrative: Narrative: All systems ED: reviewed and negative except as stated. 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) Pacemaker (Chronic) H/O adenoidectomy (Chronic) S/P foot surgery, right (Chronic) History of nasal septoplasty (Chronic 01/24/13) Hx of tonsillectomy (Chronic) Anorexia (Chronic) Dysphagia (Chronic) Insomnia (Chronic) [place] (Chronic) Prostate hypertrophy (Chronic) Seborrheic keratosis (Chronic) Weight loss (Chronic) Constipation (Acute) Hypotension (Chronic) Incomplete bladder emptying (Acute) Elevated uric acid in blood (Acute) Depression (Chronic) HFrEF (heart failure with reduced ejection fraction) (Chronic) CKD (chronic kidney disease) stage 3, GFR 30-59 ml/min (Chronic) Congestive heart failure (Acute) Moderate to severe mitral regurgitation (Acute) Severe tricuspid valve regurgitation (Acute) Abdominal pain (Acute) Constipation (Acute) Congestive heart failure (Acute) BPH loc w urin obs/LUTS (Acute) Acute left-sided thoracic back pain (Acute) Medical History Actinic keratosis Allergic rhinitis Anorexia Atrial fibrillation BPH (benign prostatic hypertrophy) with urinary obstruction Bradycardia CKD (chronic kidney disease) stage 3, GFR 30-59 ml/min Cough Depression PHQ-9: 13 02/2021 Dysphagia Dysthymic disorder Elevated uric acid in blood GERD (gastroesophageal reflux disease) HFrEF (heart failure with reduced ejection fraction) Hyperlipidemia Insomnia Ischemic heart disease Lentigo Benign Mastodynia Moderate to severe mitral regurgitation Prostate hypertrophy Continue tamsulosin 0.4 mg daily and double up on days where the stream seems to be slowing down Schedule for cystoscopy as an outpatient in anticipation of possible intervention in the future to include UroLift Pulmonary nodule Seborrheic keratosis Severe tricuspid valve regurgitation Weight loss Surgical History H/O adenoidectomy History of nasal septoplasty (01/24/13) Dr. Stephens Hx of tonsillectomy Pacemaker Pacemaker replaced 02/2010 S/P foot surgery, right 1986, broke heel, accident, fell off a truck Family History Daughter Malignant neoplasm of breast Unknown Hypertension Coronary artery disease Social History Smoking Status: Former smoker Alcohol Intake Frequency: does not drink Substance Use: does not use Exam Narrative Narrative: Narrative: Patient is laying in bed, talking normally and appropriately. He does not appear to be in acute discomfort or distress. General Limitations: no limitations Head Head: Present atraumatic and normocephalic Eye Eye: Present normal appearance, PERRL and EOMI; Absent scleral icterus and conjunctival injection ENT ENT: Present normal oropharynx and mucous membranes moist Neck Neck: Present full ROM and trachea midline; Absent tenderness and lymphadenopathy Chest Chest: Present symmetric chest wall rise Respiratory Respiratory: Present normal lung sounds bilaterally; Absent respiratory distress, rales/crackles, wheezes, stridor and accessory muscle use Cardiovascular Cardiovascular: Present regular rate and normal rhythm; Absent systolic murmur and diastolic murmur Adbominal Abdominal: Present soft; Absent tenderness, guarding, rebound, rigidity and mass Extremities Extremities: Absent pedal edema, pretibial edema and calf tenderness Expanded Lower Extremity Hip/Pelvis: Present tenderness and crepitus; Absent deformity and dislocation Upper leg: Present normal inspection Knee: Present normal inspection Lower leg: Present normal inspection Back Back: Absent CVA tenderness (R), CVA tenderness (L) and spinous process tenderness Neurological Neurological: Present alert and oriented X3 Psychiatric Psychiatric: Present normal affect and normal mood Skin Skin: Present warm (WNL) and dry Course Vital Signs Vital signs: Vital Signs Temperature 97.4 F 09/17/21 03:23 Pulse Rate 79 09/17/21 03:23 Respiratory Rate 16 09/17/21 03:23 Blood Pressure 104/75 09/17/21 03:23 Pulse Oximetry (%) 100 09/17/21 03:23 Temperature 97.4 F 09/17/21 03:28 Pulse Rate 81 09/17/21 05:03 Respiratory Rate 16 09/17/21 03:28 Blood Pressure 98/67 09/17/21 05:01 Pulse Oximetry (%) 95 09/17/21 05:03 [facility] MDM Narrative Medical decision making narrative: Narrative: Patient presented with history and physical exam concerning for possible hip fracture. X-rays did confirm this with an intertrochanteric hip fracture noted. Otherwise neurovascular intact. Head injury was unremarkable on physical exam, and CT scan was negative for any significant acute findings. With no other significant issues at this time, plan will be to admit the patient for further work-up and management of his hip fracture. I did discuss the case with the orthopedic surgeon Dr. hTomas, who agreed with the plan of admission here. I discussed case the hospitalist who agrees the plan of admission at this time. Lab Data Result diagrams: 09/17/21 04:42 Labs: Lab Results 09/17/21 09/17/21 Range/Units 04:42 04:42 WBC 8.4 (4.5-11.0) K/mcL RBC 3.97 L (4.63-6.08) M/mcL Hgb 11.5 L (13.7-17.5) g/dL Hct 36.5 L (40.1-51.0) % POC Hct 37 L (41-55) % MCV 91.9 (80.0-100.0) fL MCH 29.0 (26.0-34.0) pg MCHC 31.5 (31.0-36.0) g/dL RDW 17.2 H (11.5-14.5) % Plt Count 186 (140-440) K/mcL MPV 10.7 H (7.4-10.4) fL Neut % (Auto) 79.7 H (38.0-78.0) % Lymph % (Auto) 10.9 L (15.5-49.0) % [place] % (Auto) 9.0 (1.0-12.0) % Eos % (Auto) 0.2 (0.0-7.0) % Baso % (Auto) 0.2 (0.0-2.0) % Lymph # (Auto) 0.92 L (1.50-4.80) K/mcL [place] # (Auto) 0.76 (0.10-0.90) K/mcL Eos # (Auto) 0.02 (0.00-0.70) K/mcL Baso # (Auto) 0.02 (0.00-0.30) K/mcL Absolute Neutrophils 6.72 (1.80-8.00) K/mcL POC Sodium 136 (133-145) mEq/L POC Potassium 4.2 (3.3-5.1) mEql/L POC Chloride 96 (96-108) mEq/L POC Total CO2 28 (22-30) mmol/L POC BUN 45 H (6-20) mg/dL POC Creatinine 2.0 H (0.6-1.2) mg/dL POC Glucose 122 H (70-105) mg/dL POC WB Ioniz Calcium 1.08 L (1.16-1.32) mmEq/L Discharge Plan Patient/Caregiver Discharge Instructions Pt seen by AUDIO VISUAL MANAGER/PA only: No Clinical Impression: Closed head injury, Closed hip fracture Patient Disposition: Xfer As Inpt ([facility]) Follow up with: Vaihd Vivas MD [Primary Care Provider] - Prescriptions: No Action allopurinol 100 mg tablet See Rx Instructions .ROUTE .COMPLEX Qty: 30 RF: 6 spironolactone 25 mg tablet 25 mg PO QDAY RF: 0 torsemide 20 mg tablet 20 mg PO BID RF: 0 metoprolol succinate 25 mg tablet extended release 24 hr 12.5 mg PO QDAY Qty: 30 RF: 3 tamsulosin 0.4 mg capsule 0.4 mg PO .EOD RF: 0 trazodone 100 mg tablet 100 mg PO QHS PRN (Reason: Insomnia) RF: 0 apixaban 5 mg tablet 2.5 mg PO BID RF: 0 valsartan 40 mg tablet 20 mg PO QDAY RF: 0 polyethylene glycol 3350 [Miralax] 17 gram powder in packet 17 g PO QDAY Qty: 30 RF: 0 ascorbic acid (vitamin C) 1,000 mg tablet 1 g PO BID RF: 0 omega-3 fatty acids [Fish Oil Concentrate] 1,000 mg capsule 1,250 mg PO BID RF: 0 magnesium oxide 400 mg tablet 400 mg PO QDAY RF: 0 Alive men's 50+ 1 mg PO QDAY Qty: 30 RF: 0
--- NOTE | 2021-09-17 07:53 | Cat Scan Report ---
History: Fell, head injury, anticoagulated TECHNIQUE: The brain was imaged without contrast in axial plane at 2.5 mm intervals. The radiation exposure was limited using dose reduction technology. FINDINGS: Bone windows show no skull fracture. There is no intracranial hemorrhage, cerebral edema or abnormal extra-axial fluid collection. Age-related degenerative changes are present with mild/moderate generalized atrophy both above and below the tentorium. There are patchy areas of decreased attenuation in the white matter predominantly involving the frontal and parietal lobes. There are also ischemic changes along the inferior border of the globus pallidus bilaterally. Ventricles are mildly dilated. Postsurgical changes are seen in both orbits with bilateral cataract surgery and placement of a small metal device along the superior lateral aspect of the cornea in the right eye. IMPRESSION: No evidence of acute head injury. Moderate age-related degenerative changes Interpreted and Authenticated by: Joel Lester 09/17/21
--- NOTE | 2021-09-17 07:53 | XRay Report ---
HISTORY: Fell, right hip injury FINDINGS: There is an acute intertrochanteric fracture of the proximal right femur. There is good alignment with little displacement or angulation. There is mild fragmentation of the lesser trochanter. The femoral head is normal and the joint space is normal in width. No other fracture is present. IMPRESSION: Intertrochanteric fracture of the right hip Interpreted and Authenticated by: Joel Lester 09/17/21
--- NOTE | 2021-09-17 07:54 | XRay Report ---
HISTORY: Fell, right knee injury FINDINGS: No fracture or dislocation are present. Joint spaces are normal in width. Small spur is seen along the top of the patella. No other degenerative change is present. IMPRESSION: No fracture Interpreted and Authenticated by: Joel Lester 09/17/21
[2021-09-17] MEDS ORDERED: IPRATROPIUM/ALBUTEROL 3 ML AMPUL.NEB NEB PRN (09:18)
[2021-09-17] MEDS ORDERED: ACETAMINOPHEN 325 MG TABLET PO PRN (09:18)
[2021-09-17] MEDS ORDERED: ZOLPIDEM 5 MG TABLET PO PRN (09:18)
[2021-09-17] MEDS ORDERED: TAMSULOSIN 0.4 MG CAPSULE PO SCH (09:30)
--- NOTE | 2021-09-17 09:31 | Internal Med History&Physical ---
HPI History of Present Illness Patient information: Note initiated : 09/17/21 at 9:21 am Service Date, if different from initiated Date: [] Patient: Zaid Marroquin 85 y/o M admitted on 09/17/21 for Fall R hip pain. Chief Complaint: [] History of present illness: Mr. Marroquin is a 85 year old M history of atrial fibrillation's, congestive heart failure, chronic kidney disease stage III, dyslipidemia, BPH, presenting with fall with right hip fractures. Yesterday evening patient was ambulating in his house and he lost his balance and he fell out landed on his right side of the body. EMS brought patient to our ED for further evaluations. Vital signs at ED presentations grossly within normal limits. Labs significant for lack of leukocytosis with WBC 8.4, H&H 11.5 and 36.5, respectively. Electrolytes within normal limits. POC serum creatinine 2.[address] head without contrast no acute changes. Hip x-ray showing right hip intertrochanteric fractures. Orthopedic surgeon Dr. Thomas consulted for potential surgery. Patient is currently complaining of 10 out of 10, constant, sharp right lateral hip pain. Constitutional Constitutional: Absent chills, excessive sweating, fatigue, fever(s) and weakness EENT Eyes: Absent blurry vision, change in vision, loss of vision and other visual disturbances Ears: Absent decreased hearing and tinnitus Nose, mouth and throat: Absent abnormal hearing, dry mouth, headache(s), nasal congestion and sore throat Cardiovascular Cardiovascular: Absent chest pain, chest pain at rest, edema, irregular heart rhythm and palpatations Respiratory Respiratory: Absent cough, dyspnea and wheezing Gastrointestinal Gastrointestinal: Absent abdominal pain, constipation, diarrhea, nausea and vomiting Musculoskeletal Musculoskeletal: Absent back pain, deformity, limited range of motion, muscle cramps, muscle weakness and numbness Additional comments: right hip pain Integumentary Integumentary: Absent lesions, rash and wounds Neurological Neurological: Absent focal weakness, headache(s) and numbness Psychiatric Psychiatric: Absent anxiety, depression and hallucinations PFSH PFSH All Active Problems (Updated 09/17/21 @ 05:26 by Zaire Franks DO) Closed head injury (Acute) Closed hip fracture (Acute) Anemia, normocytic normochromic (Acute) CHF exacerbation (Acute) LIANG (acute kidney injury) (Acute) Cough (Acute) GERD (gastroesophageal reflux disease) (Chronic) Allergic rhinitis (Chronic) Pulmonary nodule (Chronic) Actinic keratosis (Chronic) Mastodynia (Chronic) Atrial fibrillation (Chronic) Hyperlipidemia (Chronic) Ischemic heart disease (Chronic) 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) Pacemaker (Chronic) H/O adenoidectomy (Chronic) S/P foot surgery, right (Chronic) History of nasal septoplasty (Chronic 01/24/13) Hx of tonsillectomy (Chronic) Anorexia (Chronic) Dysphagia (Chronic) Insomnia (Chronic) Lentigo (Chronic) Prostate hypertrophy (Chronic) Seborrheic keratosis (Chronic) Weight loss (Chronic) Constipation (Acute) Hypotension (Chronic) Incomplete bladder emptying (Acute) Elevated uric acid in blood (Acute) Depression (Chronic) HFrEF (heart failure with reduced ejection fraction) (Chronic) CKD (chronic kidney disease) stage 3, GFR 30-59 ml/min (Chronic) Congestive heart failure (Acute) Moderate to severe mitral regurgitation (Acute) Severe tricuspid valve regurgitation (Acute) Abdominal pain (Acute) Constipation (Acute) Congestive heart failure (Acute) BPH loc w urin obs/LUTS (Acute) Acute left-sided thoracic back pain (Acute) Medical History Actinic keratosis Allergic rhinitis Anorexia Atrial fibrillation BPH (benign prostatic hypertrophy) with urinary obstruction Bradycardia CKD (chronic kidney disease) stage 3, GFR 30-59 ml/min Cough Depression PHQ-9: 13 02/2021 Dysphagia Dysthymic disorder Elevated uric acid in blood GERD (gastroesophageal reflux disease) HFrEF (heart failure with reduced ejection fraction) Hyperlipidemia Insomnia Ischemic heart disease Lentigo Benign Mastodynia Moderate to severe mitral regurgitation Prostate hypertrophy Continue tamsulosin 0.4 mg daily and double up on days where the stream seems to be slowing down Schedule for cystoscopy as an outpatient in anticipation of possible intervention in the future to include UroLift Pulmonary nodule Seborrheic keratosis Severe tricuspid valve regurgitation Weight loss Surgical History H/O adenoidectomy History of nasal septoplasty (01/24/13) Dr. Stephens Hx of tonsillectomy Pacemaker Pacemaker replaced 02/2010 S/P foot surgery, right 1986, broke heel, accident, fell off a truck Family History Daughter Malignant neoplasm of breast Unknown Hypertension Coronary artery disease Social History marital status: occupational status: retired smoking status: Former smoker quit date: 11/21/89 alcohol intake frequency: does not drink substance use type: does not use MEDS/ALLERGIES Home Medications and Allergies Home Medications Medication Instructions Recorded Confirmed Type spironolactone 25 mg tablet 25 mg PO QDAY 08/21/15 09/17/21 History Alive men's 50+ 1 mg PO QDAY #30 07/16/16 09/17/21 Rx ascorbic acid (vitamin C) 1,000 mg 1 g PO BID tab 07/16/16 09/17/21 History tablet magnesium oxide 400 mg (241.3 mg 400 mg PO QDAY 07/16/16 09/17/21 History magnesium) tablet omega-3 fatty acids 1,000 mg 1,250 mg PO BID cap 07/16/16 09/17/21 History capsule polyethylene glycol 3350 [Miralax] 17 g PO QDAY #30 each 12/11/20 09/17/21 Rx allopurinol 100 mg tablet See Rx Instructions .ROUTE 06/18/21 09/17/21 Rx .COMPLEX #30 tab apixaban 5 mg tablet 2.5 mg PO BID tab 06/24/21 09/17/21 History trazodone 100 mg tablet 100 mg PO QHS PRN 06/24/21 09/17/21 History valsartan 40 mg tablet 20 mg PO QDAY tab 06/24/21 09/17/21 History metoprolol succinate 25 mg 12.5 mg PO QDAY #30 tab 06/30/21 09/17/21 Rx tablet,extended release 24 hr tamsulosin 0.4 mg capsule 0.4 mg PO .EOD cap 06/30/21 09/17/21 History torsemide 20 mg tablet 20 mg PO BID tab 06/30/21 09/17/21 History Allergies Allergy/AdvReac Type Severity Reaction Status Date / Time codeine AdvReac Severe Nausea Verified 09/17/21 03:21 EXAM Constitutional Vitals: Temp Pulse Resp BP Pulse Ox 36.3 C 82 16 105/68 100 09/17/21 08:07 09/17/21 08:07 09/17/21 08:07 09/17/21 08:07 09/17/21 08:07 General appearance: cooperative and no acute distress Head Head exam: Present atraumatic and normocephalic Eye Eye exam: Present EOMI and PERRL ENT ENT exam: Present mucous membranes moist, normal exam and normal external ear exam Additional comments: swollen tongue Neck Neck exam: Present normal inspection; Absent lymphadenopathy, tenderness and thyromegaly Respiratory Respiratory exam: Absent accessory muscle use, respiratory distress and wheezes Cardiovascular Cardiovascular exam: Present irregular rhythm and systolic murmur; Absent JVD GI/Abdominal GI/Abdominal exam: Present normal bowel sounds and soft; Absent organomegaly and tenderness Rectal Rectal exam: Present deferred Extremities Exam Extremities exam: Present normal capillary refill, normal inspection and tenderness; Absent full ROM Neurological Exam Neurological exam: Present alert, CN II-XII intact and oriented X3; Absent motor sensory deficit Psychiatric Psychiatric exam: Present normal affect and normal mood; Absent anxious and depressed Skin Skin exam: Present dry and intact DATA Data Completed and Pending Labs: Labs from last 24 hours 09/17/21 09/17/21 04:42 04:42 WBC 8.4 RBC 3.97 L Hgb 11.5 L Hct 36.5 L POC Hct 37 L MCV 91.9 MCH 29.0 MCHC 31.5 RDW 17.2 H Plt Count 186 MPV 10.7 H Neut % (Auto) 79.7 H Lymph % (Auto) 10.9 L Hand % (Auto) 9.0 Eos % (Auto) 0.2 Baso % (Auto) 0.2 Lymph # (Auto) 0.92 L Hand # (Auto) 0.76 Eos # (Auto) 0.02 Baso # (Auto) 0.02 Absolute Neutrophils 6.72 POC Sodium 136 POC Potassium 4.2 POC Chloride 96 POC Total CO2 28 POC BUN 45 H POC Creatinine 2.0 H POC Glucose 122 H POC WB Ioniz Calcium 1.08 L A/P Assessment and plan (1) Closed hip fracture: Status: Acute (2) Anemia, normocytic normochromic: Status: Acute (3) Atrial fibrillation: Status: Chronic Qualifiers: Atrial fibrillation type: paroxysmal Qualified Code(s): I48.0 - Paroxysmal atrial fibrillation (4) BPH (benign prostatic hypertrophy) with urinary obstruction: Status: Chronic (5) Pacemaker: Status: Chronic Comment: Pacemaker replaced 02/2010 (6) CKD (chronic kidney disease) stage 3, GFR 30-59 ml/min: Status: Chronic (7) HFrEF (heart failure with reduced ejection fraction): Status: Chronic Narrative A/P Narrative: Assessment and Plans: 1. Right hip intertrochanteric fracture, closed: Admit to inpatient [facility] Orthopedic surgeon Dr. Thomas consulted, recs. appreciated Patient was on Eliquis and he does not remember when was the last time that he took it so we have to assume that it was the day before admissions September 16, 2021 Recommend holding Eilquis at least 2 to 3 days prior to orthopedic surgeries Bedrest Oxycodone as needed moderate pain Morphine IV as needed severe pain Physical therapy Occupational Therapy #2 history of atrial fibrillation's, status post cardiac pacemaker placement: Recommend holding Eilquis at least 2 to 3 days prior to orthopedic surgeries Metoprolol succinate 12.5 mg p.o. daily Valsartan Torsemide Spironolactone #3 dyslipidemia: Continue omega 3 fish oil #4 BPH: Continue Flomax #5 normocytic normochromic anemia: CBC with auto differential in the morning to trend H&H; transfuse PRBC if hemoglobin less than 7.0, active bleeding, or if symptomatic #6 chronic renal disease stage III: Saline lock Avoid nephrotoxic agent BMP in the morning to trend kidney functions GI prophylaxis: Not currently indicated DVT prophylaxis: Hold Eliquis; SCDs instead CODE STATUS: Full code Prognosis: Stable [facility] Time Spent With Patient Time: Total time spent is greater than 50% in coordination of care (as documented) at patient's floor/unit and/or counseling patient: Total time spent with greater than 50% in coordination of care (as documented) at patient's floor/unit and/or counseling patient:: Greater than 35 minutes
--- NOTE | 2021-09-17 09:46 | XRay Report ---
HISTORY: Short of breath, fell with acute right hip fracture FINDINGS: The heart is severely enlarged. There is mild pulmonary vascular congestion. Dual-chamber pacemaker is well-positioned. A small right-sided pleural effusion is present. There may be mild atelectasis posteriorly and medially in the right lower lobe. Comparison with the prior x-ray done on 07/31/21 shows no change in the heart size. The pulmonary vasculature congestion has improved and the previously seen left-sided pleural effusion has resolved. Right-sided effusion is unchanged. IMPRESSION: Chronic cardiomegaly with congestive heart failure Interpreted and Authenticated by: Joel Lester 09/17/21
[2021-09-17] MEDS: ALLOPURINOL 100 MG TABLET PO SCH (11:13)
[2021-09-17] MEDS: 0.9 % SODIUM CHLORIDE 10 ML SYRINGE IV SCH ×5 (11:13→23:04)
[2021-09-17] MEDS: oxyCODONE HCL 5 MG TABLET PO PRN (17:28)
--- NOTE | 2021-09-17 18:53 | Orthopedic History & Physical ---
HPI History of Present Illness Patient information: Note initiated : 09/17/21 at 6:51 pm Service Date, if different from initiated Date: [] Patient: Zaid Marroquin a 85 y/o M admitted on 09/17/21 for Fall R hip pain. Chief Complaint: [Right hip pain s/p fall ] History of present illness: Mr. Marroquin is a 85 year old M history of atrial fibrillation's, congestive heart failure, chronic kidney disease stage III, dyslipidemia, BPH, Yesterday evening patient was ambulating in his house and he lost his balance and he fell out landed on his right side of the body. EMS brought patient to [facility] ED for further evaluations. CT head was negative for hemorrhage. Hip x-ray showing right hip intertrochanteric fracture. Orthopedic surgeon Dr. Thomas consulted for potential surgery. Patient is currently complaining of hip pain only with palpation and ROM. Review of Systems Review of systems: 10 point review of systems performed and is negative except where mentioned in HPI PFSH PFSH All Active Problems Closed head injury (Acute) Closed hip fracture (Acute) Anemia, normocytic normochromic (Acute) CHF exacerbation (Acute) LIANG (acute kidney injury) (Acute) Cough (Acute) GERD (gastroesophageal reflux disease) (Chronic) Allergic rhinitis (Chronic) Pulmonary nodule (Chronic) Actinic keratosis (Chronic) Mastodynia (Chronic) Atrial fibrillation (Chronic) Hyperlipidemia (Chronic) Ischemic heart disease (Chronic) 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) Pacemaker (Chronic) H/O adenoidectomy (Chronic) S/P foot surgery, right (Chronic) History of nasal septoplasty (Chronic 01/24/13) Hx of tonsillectomy (Chronic) Anorexia (Chronic) Dysphagia (Chronic) Insomnia (Chronic) Lentigo (Chronic) Prostate hypertrophy (Chronic) Seborrheic keratosis (Chronic) Weight loss (Chronic) Constipation (Acute) Hypotension (Chronic) Incomplete bladder emptying (Acute) Elevated uric acid in blood (Acute) Depression (Chronic) HFrEF (heart failure with reduced ejection fraction) (Chronic) CKD (chronic kidney disease) stage 3, GFR 30-59 ml/min (Chronic) Congestive heart failure (Acute) Moderate to severe mitral regurgitation (Acute) Severe tricuspid valve regurgitation (Acute) Abdominal pain (Acute) Constipation (Acute) Congestive heart failure (Acute) BPH loc w urin obs/LUTS (Acute) Acute left-sided thoracic back pain (Acute) Medical History Actinic keratosis Allergic rhinitis Anorexia Atrial fibrillation BPH (benign prostatic hypertrophy) with urinary obstruction Bradycardia CKD (chronic kidney disease) stage 3, GFR 30-59 ml/min Cough Depression PHQ-9: 13 02/2021 Dysphagia Dysthymic disorder Elevated uric acid in blood GERD (gastroesophageal reflux disease) HFrEF (heart failure with reduced ejection fraction) Hyperlipidemia Insomnia Ischemic heart disease Lentigo Benign Mastodynia Moderate to severe mitral regurgitation Prostate hypertrophy Continue tamsulosin 0.4 mg daily and double up on days where the stream seems to be slowing down Schedule for cystoscopy as an outpatient in anticipation of possible intervention in the future to include UroLift Pulmonary nodule Seborrheic keratosis Severe tricuspid valve regurgitation Weight loss Surgical History H/O adenoidectomy History of nasal septoplasty (01/24/13) Dr. Stephens Hx of tonsillectomy Pacemaker Pacemaker replaced 02/2010 S/P foot surgery, right 1986, broke heel, accident, fell off a truck Family History Daughter Malignant neoplasm of breast Unknown Hypertension Coronary artery disease Social History marital status: occupational status: retired smoking status: Former smoker quit date: 11/21/89 alcohol intake frequency: does not drink substance use type: does not use MEDS/ALLERGIES Home Medications and Allergies Home Medications Medication Instructions Recorded Confirmed Type spironolactone 25 mg tablet 25 mg PO QDAY 08/21/15 09/17/21 History Alive men's 50+ 1 mg PO QDAY #30 07/16/16 09/17/21 Rx ascorbic acid (vitamin C) 1,000 mg 1 g PO BID tab 07/16/16 09/17/21 History tablet magnesium oxide 400 mg (241.3 mg 400 mg PO QDAY 07/16/16 09/17/21 History magnesium) tablet omega-3 fatty acids 1,000 mg 1,250 mg PO BID cap 07/16/16 09/17/21 History capsule polyethylene glycol 3350 [Miralax] 17 g PO QDAY #30 each 12/11/20 09/17/21 Rx allopurinol 100 mg tablet See Rx Instructions .ROUTE 06/18/21 09/17/21 Rx .COMPLEX #30 tab apixaban 5 mg tablet 2.5 mg PO BID tab 06/24/21 09/17/21 History trazodone 100 mg tablet 100 mg PO QHS PRN 06/24/21 09/17/21 History valsartan 40 mg tablet 20 mg PO QDAY tab 06/24/21 09/17/21 History metoprolol succinate 25 mg 12.5 mg PO QDAY #30 tab 06/30/21 09/17/21 Rx tablet,extended release 24 hr tamsulosin 0.4 mg capsule 0.4 mg PO .EOD cap 06/30/21 09/17/21 History torsemide 20 mg tablet 20 mg PO BID tab 06/30/21 09/17/21 History Allergies Allergy/AdvReac Type Severity Reaction Status Date / Time codeine AdvReac Mild Nausea Verified 09/17/21 12:46 Physical Examination Narrative Narrative: Narrative: Results Labs Result Diagrams: 09/17/21 04:42 Labs: Abnormal lab results 09/17/21 09/17/21 Range/Units 04:42 04:42 RBC 3.97 L (4.63-6.08) M/mcL Hgb 11.5 L (13.7-17.5) g/dL Hct 36.5 L (40.1-51.0) % POC Hct 37 L (41-55) % RDW 17.2 H (11.5-14.5) % MPV 10.7 H (7.4-10.4) fL Neut % (Auto) 79.7 H (38.0-78.0) % Lymph % (Auto) 10.9 L (15.5-49.0) % Lymph # (Auto) 0.92 L (1.50-4.80) K/mcL POC BUN 45 H (6-20) mg/dL POC Creatinine 2.0 H (0.6-1.2) mg/dL POC Glucose 122 H (70-105) mg/dL POC WB Ioniz Calcium 1.08 L (1.16-1.32) mmEq/L H & H 09/17/21 Range/Units 04:42 Hgb 11.5 L (13.7-17.5) g/dL Hct 36.5 L (40.1-51.0) % All other labs normal. A/P Narrative A/P Narrative: Assessment: 85 YO male w/ hx of atrial fibrillation treated w/ Eliquis 5mg who suffered a ground level mechanical fall sustaining a non- displaced intertrochanteric fracture of the right hip. On exam patient is seated in bed in no acute distress, awake alert conversant and cooperative. Lungs are equal and clear bilat, heart irregular rhythm. chest, abd and left pelvis are non tender to palpation. patient is able to move all four extremities which are warm, well perfused and neuro intact. At the right hip and pelvis area there is pain to palp and with any ROM. Plan: options were presented to the patient including non surgical and surgical. non surgical carrying the risks of further or increased pain, loss of ROM and further damage to nerves and blood vessels. Also surgical option which consists of open reduction internal fixation of the intertrochanteric fracture via TFNA nail placement to take place semiurgently with Dr. Thomas surgeon and [facility]. At this time patient is interested in surgery. Surgical risks were explained to the patient which include but are not limited to: pain, bleeding, infection, injury to adjacent structures, stroke risk, cardiac complications, pulmonary complications anesthesia reactions and , Patient and his Cadence who was contacted by phone at [phone] understand these risks and wishto proceed with surgery. Time Spent With Patient Time: Total time spent is greater than 50% in coordination of care (as documented) at patient's floor/unit and/or counseling patient:
[2021-09-17] MEDS: FISH OIL 1,000 MG CAPSULE PO SCH (21:36)
[2021-09-17] MEDS: SENNOSIDES 1 TABLET PO SCH (21:36)
[2021-09-17] MEDS: ASCORBIC ACID 500 MG TABLET PO SCH (21:36)
[2021-09-17] MEDS: TORSEMIDE 10 MG TABLET PO SCH (21:37)
[2021-09-17] MEDS: DOCUSATE SODIUM 100 MG CAPSULE PO SCH (21:37)
[2021-09-18] MEDS: oxyCODONE HCL 5 MG TABLET PO PRN (00:01)
[2021-09-18] MEDS: traZODone HCL 100 MG TABLET PO PRN (00:56)
[2021-09-18 04:25] LABS: Appearance,Urine HAZY (Clear); Bacteria,Urine 0 /hpf (0); Bilirubin,Urine Negative (Negative); Color,Urine AMBER; Culture Indicated,Urine No; Glucose,Urine (UA) Negative (Negative); Ketones,Urine Negative (Negative); Leukocyte Esterase,Urine Negative /uL (Negative); Nitrate,Urine Negative (Negative); Protein,Urine 30 mg/dL (Negative); Specific Gravity,Urine 1.013 (1.000-1.035); Urine Blood Negative (Negative); Urine Leucine Crystals 0 /hpf (0-0); Urine RBC 0 /hpf (0-3); Urine Squamous Epithelial Cell 1 /hpf (0-4); Urine WBC 0 /hpf (0-4); Urobilinogen,Urine Negative
[2021-09-18] MEDS ORDERED: SCOPOLAMINE 1 PATCH PATCH TOPICAL PRN (07:00)
[2021-09-18] MEDS: 0.9 % SODIUM CHLORIDE 10 ML SYRINGE IV SCH ×5 (07:00→20:36)
[2021-09-18 07:02] LABS: Basophils # (Auto) 0.04 K/mcL (0.00-0.30); Basophils % (Auto) 0.4 % (0.0-2.0); Eosinophils # (Auto) 0.03 K/mcL (0.00-0.70); Eosinophils % (Auto) 0.3 % (0.0-7.0); Hematocrit 35.4 % (40.1-51.0); Hemoglobin 11.2 g/dL (13.7-17.5); Lymphocytes # (Auto) 0.91 K/mcL (1.50-4.80); Lymphocytes % (Auto) 9.7 % (15.5-49.0); Mean Cell Volume 92.4 fL (80.0-100.0); Mean Corpuscular HGB Conc 31.6 g/dL (31.0-36.0); Mean Platelet Volume 10.7 fL (7.4-10.4); Monocytes # (Auto) 1.14 K/mcL (0.10-0.90); Monocytes % (Auto) 12.1 % (1.0-12.0); Neutrophils % (Auto) 77.5 % (38.0-78.0); Platelet Count 172 K/mcL (140-440); RBC 3.83 M/mcL (4.63-6.08); Red Cell Distribution Width 17.2 % (11.5-14.5); WBC 9.4 K/mcL (4.5-11.0)
[2021-09-18 07:46] LABS: Blood Urea Nitrogen 53 mg/dL (8-23); Calcium 9.2 mg/dL (8.6-10.4); Carbon Dioxide 26 mmol/L (22-30); Chloride 96 mmol/L (96-108); Glomerular Filtration Rate 29; Glucose 107 mg/dL (70-105)
[2021-09-18] MEDS ORDERED: VALSARTAN 40 MG PO SCH (09:00)
[2021-09-18] MEDS: morphine 4 MG/ML VIAL IV PRN (10:02)
[2021-09-18] MEDS ORDERED: INSULIN REGULAR, HUMAN 1 UNIT/0.01 ML UNIT IV ONE (10:03)
[2021-09-18] MEDS ORDERED: CALCIUM GLUCONATE 4.65 MEQ in DEXTROSE 5% IN WATER 50 ML IV ONE (10:03)
[2021-09-18] MEDS ORDERED: DEXTROSE 50% 50 ML VIAL IV ONE (10:03)
[2021-09-18] MEDS ORDERED: ALBUTEROL SULFATE 2.5 MG/3 ML NEBULIZER NEB ONE (10:03)
[2021-09-18] MEDS ORDERED: FUROSEMIDE 20 MG/2 ML VIAL IV ONE (10:05)
--- NOTE | 2021-09-18 10:40 | Internal Med Progress Note ---
SUBJECTIVE Subjective Patient information: Note initiated : 09/18/21 at 10:36 am Service Date, if different from initiated Date: [] Patient: Zaid Marroquin a 85 y/o M admitted on 09/17/21 for Fall R hip pain. Chief Complaint: [right hip fracture] Interval history: History of present illness: Mr. Marroquin is a 85 year old M history of atrial fibrillation's, congestive heart failure, chronic kidney disease stage III, dyslipidemia, BPH, presenting with fall with right hip fractures. Yesterday evening patient was ambulating in his house and he lost his balance and he fell out landed on his right side of the body. EMS brought patient to our ED for further evaluations. Vital signs at ED presentations grossly within normal limits. Labs significant for lack of leukocytosis with WBC 8.4, H&H 11.5 and 36.5, respectively. Electrolytes within normal limits. POC serum creatinine 2.[address] head without contrast no acute changes. Hip x-ray showing right hip intertrochanteric fractures. Orthopedic surgeon Dr. Thomas consulted for potential surgery. Patient is currently complaining of 10 out of 10, constant, sharp right lateral hip pain. 09/18: Serum potassium 5.4. Denies any right hip pain currently. Denies any chest pain or palpitation. Scheduled for right hip nail placement this afternoon by Dr. Thomas. Constitutional Vitals: Vital Signs Temp Pulse Resp BP Pulse Ox 36.4 C 64 16 94/63 97 09/18/21 07:27 09/18/21 07:27 09/18/21 07:27 09/18/21 07:27 09/18/21 07:27 Period Temp Pulse Resp BP Sys/Rodríguez Pulse Ox Last 24 Hr 36.3 C-36.8 C 60-83 16-20 90-110/61-78 90-100 Intake and Output 09/17/21 09/18/21 09/18/21 21:59 05:59 13:59 Intake Total 600 360 Output Total 700 325 Balance -100 35 Weight 76.204 kg Intake & Output: Intake & Output 09/17/21 09/18/21 09/18/21 21:59 05:59 13:59 Intake Total 600 360 Output Total 700 325 Balance -100 35 Weight 76.204 kg Intake: Oral 600 360 Output: Urine Catheter Amount 700 325 Straight 700 Other: Meal Dinner Percent of Meal Consumed 75% Urine Appearance Clear Straight Clear Clear Clear Urine Color Light Chani Straight Light Chani Bright Yellow Light Chani General appearance: cooperative and no acute distress Head Head exam: Present atraumatic and normocephalic Eye Eye exam: Present EOMI and PERRL ENT ENT exam: Present mucous membranes moist and normal external ear exam; Absent normal exam Additional comments: Enlarged tongue Neck Neck exam: Present normal inspection; Absent lymphadenopathy, tenderness and thyromegaly Respiratory Respiratory exam: Absent accessory muscle use, respiratory distress and wheezes Cardiovascular Cardiovascular exam: Present irregular rhythm; Absent JVD GI/Abdominal GI/Abdominal exam: Present normal bowel sounds and soft; Absent organomegaly and tenderness Rectal Rectal exam: Present deferred Extremities Exam Extremities exam: Present normal capillary refill and tenderness; Absent full ROM and normal inspection Neurological Exam Neurological exam: Present alert, CN II-XII intact and oriented X3; Absent motor sensory deficit Psychiatric Psychiatric exam: Present normal affect and normal mood; Absent anxious and d epressed Skin Skin exam: Present dry and intact OBJ DATA Labs CBC & Chem 7: 09/18/21 05:14 09/18/21 05:14 Labs: Abnormal Lab Results 09/18/21 09/18/21 09/17/21 05:14 05:14 04:42 RBC 3.83 L Hgb 11.2 L Hct 35.4 L POC Hct 37 L RDW 17.2 H MPV 10.7 H Neut % (Auto) Lymph % (Auto) 9.7 L Edwards % (Auto) 12.1 H Lymph # (Auto) 0.91 L Edwards # (Auto) 1.14 H Potassium 5.4 H POC BUN 45 H BUN 53 H Creatinine 2.0 H POC Creatinine 2.0 H Glucose 107 H POC Glucose 122 H POC WB Ioniz Calcium 1.08 L Urine Appearance Urine Protein 09/17/21 09/17/21 04:42 00:20 RBC 3.97 L Hgb 11.5 L Hct 36.5 L POC Hct RDW 17.2 H MPV 10.7 H Neut % (Auto) 79.7 H Lymph % (Auto) 10.9 L Edwards % (Auto) Lymph # (Auto) 0.92 L Edwards # (Auto) Potassium POC BUN BUN Creatinine POC Creatinine Glucose POC Glucose POC WB Ioniz Calcium Urine Appearance Hazy A Urine Protein 30 A Meds: Medications Acetaminophen (Acetaminophen 325 Mg Tablet) 650 mg PO Q6HP PRN; Protocol PRN Reason: Per Pain Protocol/Fever > 101 Albuterol/Ipratropium (Ipratropium/Albuterol 3 Ml Ampul.Neb) 3 ml NEB Q4HRT PRN PRN Reason: Wheezing Allopurinol (Allopurinol 100 Mg Tablet) 100 mg PO DAILY [facility] Last Admin: 09/17/21 11:13 Dose: 100 mg Documented by: Ascorbic Acid (Ascorbic Acid 500 Mg Tablet) 1,000 mg PO BID [facility] Last Admin: 09/17/21 21:36 Dose: 1,000 mg Documented by: Docusate Sodium (Docusate Sodium 100 Mg Capsule) 100 mg PO BID [facility] Last Admin: 09/17/21 21:37 Dose: 100 mg Documented by: Fish Oil (Fish Oil 1,000 Mg Capsule) 1,000 mg PO BID [facility] Last Admin: 09/17/21 21:36 Dose: 1,000 mg Documented by: Calcium Gluconate 4.65 meq/ (Dextrose) 60 mls @ 100 mls/hr IV ONCE ONE Stop: 09/18/21 10:38 Iron Carb/Multivit/[employer]/Folic Acid (Multivit,Ther Iron,Ca,Fa & Min 1 Tablet) 1 tab PO DAILY [facility] Magnesium Oxide (Magnesium Oxide 400 Mg Tablet) 400 mg PO QDAY [facility] Metoprolol Succinate (Metoprolol Succinate 25 Mg Tab.Xl.24h) 12.5 mg PO QDAY [facility] Morphine Sulfate (Morphine 4 Mg/Ml Vial) 4 mg IV Q4HP PRN; Protocol PRN Reason: Per Pain Protocol Last Admin: 09/18/21 10:02 Dose: 4 mg Documented by: Ondansetron HCl (Ondansetron 4 Mg/2 Ml Vial) 4 mg IV Q6HP PRN PRN Reason: Nausea And Vomiting Ondansetron HCl (Ondansetron 4 Mg/2 Ml Vial) 4 mg IV Q6HP PRN PRN Reason: Nausea And Vomiting Oxycodone HCl (Oxycodone Hcl 5 Mg Tablet) 5 mg PO Q4HP PRN; Protocol PRN Reason: Per Pain Protocol Last Admin: 09/18/21 00:01 Dose: 5 mg Documented by: Polyethylene Glycol (Polyethylene Glycol 3350 17 Gm Packet) 17 gm PO QDAY [facility] Scopolamine (Scopolamine 1 Patch Patch) 1 patch TOPICAL PREOP PRN PRN Reason: Nausea And Vomiting Senna (Sennosides 1 Tablet) 2 tab PO HS [facility] Last Admin: 09/17/21 21:36 Dose: 2 tab Documented by: Sodium Chloride (0.9 % Sodium Chloride 10 Ml Syringe) 10 ml IV Q8 [facility] Last Admin: 09/17/21 21:40 Dose: 10 ml Documented by: Sodium Chloride (0.9 % Sodium Chloride 10 Ml Syringe) 10 ml IV Q8 [facility] Last Admin: 09/17/21 23:04 Dose: Not Given Documented by: Spironolactone (Spironolactone 25 Mg Tablet) 25 mg PO QDAY [facility] Torsemide (Torsemide 10 Mg Tablet) 20 mg PO BID [facility] Last Admin: 09/17/21 21:37 Dose: 20 mg Documented by: Trazodone HCl (Trazodone Hcl 100 Mg Tablet) 100 mg PO QHS PRN PRN Reason: Insomnia Last Admin: 09/18/21 00:56 Dose: 100 mg Documented by: Zolpidem Tartrate (Zolpidem 5 Mg Tablet) 5 mg PO HSP PRN PRN Reason: Insomnia A/P Assessment and plan (1) Closed hip fracture: Status: Acute (2) Anemia, normocytic normochromic: Status: Acute (3) Atrial fibrillation: Status: Chronic Qualifiers: Atrial fibrillation type: paroxysmal Qualified Code(s): I48.0 - Paroxysmal atrial fibrillation (4) BPH (benign prostatic hypertrophy) with urinary obstruction: Status: Chronic (5) Pacemaker: Status: Chronic Comment: Pacemaker replaced 02/2010 (6) CKD (chronic kidney disease) stage 3, GFR 30-59 ml/min: Status: Chronic (7) HFrEF (heart failure with reduced ejection fraction): Status: Chronic (8) Hyperkalemia: Status: Acute Narrative A/P Narrative: Assessment and Plans: 1. Right hip intertrochanteric fracture, closed: Stays in inpatient [facility] Orthopedic surgeon Dr. Thomas consulted, recs. appreciated, right hip nail placement scheduled for this afternoon Hold Eliquis for the planned surgery Bedrest Oxycodone as needed moderate pain Morphine IV as needed severe pain Physical therapy Occupational Therapy #2 history of atrial fibrillation's, status post cardiac pacemaker placement: Recommend holding Eilquis at least 2 to 3 days prior to orthopedic surgeries Metoprolol succinate 12.5 mg p.o. daily Valsartan Torsemide Spironolactone #3 dyslipidemia: Continue omega 3 fish oil #4 BPH: Continue Flomax #5 normocytic normochromic anemia: CBC with auto differential in the morning to trend H&H; transfuse PRBC if hemoglobin less than 7.0, active bleeding, or if symptomatic #6 chronic renal disease stage III: Saline lock Avoid nephrotoxic agent BMP in the morning to trend kidney functions 7. Hyperkalemia: Albuterol Dextrose with regular insulin 10 unit Lasix IV Calcium gluconate Repeat serum potassium level GI prophylaxis: Not currently indicated DVT prophylaxis: Hold Eliquis; SCDs instead CODE STATUS: DNI DNR Prognosis: Stable Dispositions: Inpatient MedSurg Time Spent With Patient Time: Total time spent is greater than 50% in coordination of care (as d ocumented) at patient's floor/unit and/or counseling patient: Total time spent with greater than 50% in coordination of care (as documented) at patient's floor/unit and/or counseling patient:: Greater than 35 minutes
[2021-09-18] MEDS: TORSEMIDE 10 MG TABLET PO SCH ×2 (11:56→20:36)
[2021-09-18] MEDS: SPIRONOLACTONE 25 MG TABLET PO SCH (11:56)
[2021-09-18] MEDS: FISH OIL 1,000 MG CAPSULE PO SCH ×2 (11:56→20:36)
[2021-09-18] MEDS: DOCUSATE SODIUM 100 MG CAPSULE PO SCH ×2 (11:56→20:35)
[2021-09-18] MEDS: MAGNESIUM OXIDE 400 MG TABLET PO SCH (11:57)
[2021-09-18] MEDS: POLYETHYLENE GLYCOL 3350 17 GM PACKET PO SCH (11:57)
[2021-09-18] MEDS: MULTIVIT,THER IRON,CA,FA & MIN 1 TABLET PO SCH (11:57)
[2021-09-18] MEDS: METOPROLOL SUCCINATE 25 MG TAB.XL.24H PO SCH (11:58)
[2021-09-18] MEDS: ALLOPURINOL 100 MG TABLET PO SCH (11:58)
[2021-09-18] MEDS: ASCORBIC ACID 500 MG TABLET PO SCH ×2 (11:58→20:36)
[2021-09-18] MEDS ORDERED: ceFAZolin 2 GM in DEXTROSE 5% IN WATER 50 ML IV SCH ×2 (13:00→14:15)
[2021-09-18] MEDS ORDERED: DEXAMETHASONE 10 MG/ML VIAL ONE (13:01)
[2021-09-18] MEDS ORDERED: ePHEDrine 50 MG/5 ML SYRINGE (ANEST) IV ONE (13:01)
[2021-09-18] MEDS ORDERED: PHENYLephrine 1 MG/10 ML SYRINGE (ANEST) ONE (13:01)
[2021-09-18] MEDS ORDERED: KETAMINE 50 MG/ML Syringe (ANEST) IV ONE (13:01)
[2021-09-18] MEDS ORDERED: ETOMIDATE 20 MG/10 ML VIAL IV ONE (13:01)
[2021-09-18] MEDS ORDERED: fentaNYL 100 MCG/2 ML VIAL IV ONE (13:01)
[2021-09-18] MEDS ORDERED: ONDANSETRON 4 MG/2 ML VIAL ONE (13:01)
--- NOTE | 2021-09-18 14:13 | General Surgery Procedure Note ---
Date of procedure: Note initiated : 09/18/21 at 2:08 pm Service Date, if different from initiated Date: [] Pre-op diagnosis: right hip intertrochanteric fracture Post-op diagnosis: same Procedure: cephalomedullary nailing right hip Findings: IT fracture Anesthesia: GETA Surgeon: Chace Thomas Drum Puller: Prieto Marks Estimated blood loss: 150 Pathology: none sent Condition: stable Disposition: PACU
[2021-09-18] MEDS ORDERED: TRANEXAMIC ACID 1,000 MG/10 ML VIAL IV SCH (14:14)
[2021-09-18] MEDS ORDERED: POLYETHYLENE GLYCOL 3350 17 GM PACKET PO PRN (14:14)
[2021-09-18] MEDS ORDERED: METHOCARBAMOL 750 MG TABLET PO PRN (14:14)
[2021-09-18] MEDS ORDERED: HYDROcodone/APAP 10/325MG TABLET PO PRN (14:14)
[2021-09-18] MEDS ORDERED: MAGNESIUM HYDROXIDE 30 ML ORAL.SUSP PO PRN (14:14)
[2021-09-18] MEDS ORDERED: BISACODYL 10 MG SUPP.RECT PR PRN (14:14)
[2021-09-18] MEDS ORDERED: BENZOCAINE/MENTHOL 1 LOZENGE PO PRN (14:14)
[2021-09-18] MEDS ORDERED: FLEETS ADULT ENEMA PR PRN (14:14)
[2021-09-18] MEDS ORDERED: ONDANSETRON 4 MG ODT TABLET SL PRN (14:14)
[2021-09-18] MEDS ORDERED: morphine 4 MG/ML VIAL IV PRN (14:14)
--- NOTE | 2021-09-18 14:14 | Discharge Plan ---
DC Instructions-General Patient Instructions Dressing Care: May shower in 2 days Discharge Plan Patient/Caregiver Discharge Instructions Activity: ambulate only with your walker and as per physical therapy Diet: Regular Diet Prescriptions: No Action allopurinol 100 mg tablet See Rx Instructions .ROUTE .COMPLEX Qty: 30 RF: 6 spironolactone 25 mg tablet 25 mg PO QDAY RF: 0 torsemide 20 mg tablet 20 mg PO BID RF: 0 metoprolol succinate 25 mg tablet extended release 24 hr 12.5 mg PO QDAY Qty: 30 RF: 3 tamsulosin 0.4 mg capsule 0.4 mg PO .EOD RF: 0 trazodone 100 mg tablet 100 mg PO QHS PRN (Reason: Insomnia) RF: 0 apixaban 5 mg tablet 2.5 mg PO BID RF: 0 valsartan 40 mg tablet 20 mg PO QDAY RF: 0 polyethylene glycol 3350 [Miralax] 17 gram powder in packet 17 g PO QDAY Qty: 30 RF: 0 ascorbic acid (vitamin C) 1,000 mg tablet 1 g PO BID RF: 0 omega-3 fatty acids [Fish Oil Concentrate] 1,000 mg capsule 1,250 mg PO BID RF: 0 magnesium oxide 400 mg tablet 400 mg PO QDAY RF: 0 Alive men's 50+ 1 mg PO QDAY Qty: 30 RF: 0 Follow Up Plan Follow up with: Chace Thomas MD [Physician] - Vahid Vivas MD [Primary Care Provider] - Patient Disposition: Xfer SNF Rehab Potential: Good I certify that the patient requires SNF services: Yes Overall status at discharge: patient is progressing back to baseline Discharge Orders: Discharge Order (Routine); Ordered 09/19/21 Ordered By: Chace Thomas
[2021-09-18] MEDS ORDERED: ONDANSETRON 4 MG/2 ML VIAL IV PRN (14:36)
[2021-09-18] MEDS ORDERED: fentaNYL 100 MCG/2 ML VIAL IV PRN (14:36)
[2021-09-18] MEDS ORDERED: IPRATROPIUM/ALBUTEROL 3 ML AMPUL.NEB NEB PRN (14:36)
[2021-09-18] MEDS ORDERED: METHOCARBAMOL 1,000 MG/10 ML VIAL IV PRN (14:36)
[2021-09-18] MEDS ORDERED: ePHEDrine 50 MG/ML AMPUL IV PRN (14:36)
[2021-09-18] MEDS ORDERED: MEPERIDINE 25 MG/ML VIAL IV PRN (14:36)
[2021-09-18] MEDS ORDERED: LACTATED RINGERS 1,000 ML IV SCH (14:45)
--- NOTE | 2021-09-18 15:19 | XRay Report ---
HISTORY: FINDINGS: IMPRESSION: 0.8 minutes of fluoroscopy time was used. Interpreted and Authenticated by: Joel Lester 09/18/21
--- NOTE | 2021-09-18 15:26 | Operative Note ---
DATE OF OPERATION: 09/18/2021 PRE-OP DIAGNOSIS: Intertrochanteric fracture, right hip. POST-OP DIAGNOSIS: Intertrochanteric fracture, right hip. PROCEDURE: Right hip cephalomedullary nailing. SURGEON: Chace Thomas M.D. CASH POSTING CLERK SURGEON: Osiel Marks PA-C. The PA's assistance was required for the safe and efficient completion of the entire case. This providers expertise and technical skill were required throughout the case. The PA assisted with preoperative coordination, intraoperative retraction, limb manipulation, wound closure, dressing application, as well as post-operative documentation and care coordination. ANESTHESIA: Spinal with LMA assist. ESTIMATED BLOOD LOSS: 150 mL. COMPLICATIONS: None noted. SPECIMENS REMOVED: None DRAINS: None. IMPLANTS: Synthes TFNA nail 12 mm diameter 130 degree titanium cannulated 170 mm sterile; Goodie Goodie App titanium locking screw 5.0 x 46 mm; and TFNA fenestrated helical blade 115 mm sterile. INDICATIONS: The patient fell and was unable to ambulate. Radiographs have confirmed a displaced intertrochanteric fracture of the proximal femur. The patient was admitted to the hospital and underwent medical clearance. After a long discussion about treatment options, the patient elected to proceed with cephalomedullary nailing. The risks and benefits were discussed with the patient in detail including, but not limited to, the risks of anesthesia, problems with the heart or lungs related to anesthesia, infection, compromise or injury to the nerves and blood vessels, deep venous thrombosis, pulmonary embolism, pneumonia, continued pain after surgery, worsening pain or symptoms after surgery, swelling, loss of motion, malunion, non-union, leg length discrepancy, and need for repeat surgery. DESCRIPTION OF PROCEDURE: The patient was seen in pre-anesthesia waiting room where all questions were answered and the correct side and site were identified and marked. The patient was then brought to the operating room and administered the anesthetic, tranexamic acid, and given pre-operative antiobiotics. A time-out was then called. The patient was placed on the fracture table with all prominences well padded. The leg was brought into traction, adduction, and slight internal rotation. We used c-arm with orthogonal views to confirm anatomic reduction of the fracture. The extremity was prepped and draped in the usual sterile fashion. C-arm was again used to confirm landmarks. A percutaneous incision was created about 4 centimeters proximal to the greater trochanter. A guide pin was placed into the femoral canal under fluoroscopy after we found the appropriate starting position along the medial boarder of the trochanter and just anterior to the center position laterally. We placed a protector sleeve proximally and over-reamed with the 17 mm proximal reamer. Next, we changed out the guide pin for a ball-tipped guide liya and placed it into the femoral canal. Position was confirmed with the c-arm. The 170 mm Synthes TFNa nail was then placed with appropriate depth and version using the percutaneous targeting guide. The lateral helical blade sleeve was placed in the targeting guide and a second small percutaneous incision was made to allow the sleeve access to the lateral cortex of the femur. We drilled the guide pin into the center center position of the femoral head confirmed with fluoroscopy. We measured and drilled over the guide pin. The helical blade was then inserted and we compressed the fracture. The targeting sleeve was again used to place a percutaneous 5.0 mm screw distally in the static hole. It was drilled, measured, and placed using c-arm guidance. Traction was removed on the hip. The targeting device was then removed and final radiographs were taken confirming reduction of the fracture and adequate placement of all hardware. We thoroughly irrigated the three percutaneous incisions and closed the deep fascia with #0 Vicryl. We closed the subcutaneous tissue and skin in layers out to akhil in the skin. A sterile pressure dressing was applied. All needle and sponge counts were correct. The patient was transferred to the recovery room in stable condition. NOREEN:jordyn Job ID: [id number] Doc ID: [id number] Guillermo Thomas MD
[2021-09-18] MEDS: LACTATED RINGERS 1,000 ML IV SCH ×2 (18:34→21:48)
[2021-09-18] MEDS: ceFAZolin 1 GM VIAL IV SCH (20:35)
[2021-09-18] MEDS: SENNOSIDES 1 TABLET PO SCH (20:36)
[2021-09-18] MEDS ORDERED: SENNOSIDES 1 TABLET PO SCH (21:00)
[2021-09-18] MEDS ORDERED: DOCUSATE SODIUM 100 MG CAPSULE PO SCH (21:00)
[2021-09-18] MEDS ORDERED: FUROSEMIDE 40 MG/4 ML VIAL IV ONE (23:53)
[2021-09-19] MEDS ORDERED: FUROSEMIDE 40 MG/4 ML VIAL IV ONE ×2 (00:01)
[2021-09-19] MEDS: LACTATED RINGERS 1,000 ML IV SCH ×2 (03:16→11:56)
[2021-09-19] MEDS: 0.9 % SODIUM CHLORIDE 10 ML SYRINGE IV SCH ×3 (05:24→20:08)
[2021-09-19] MEDS: ceFAZolin 1 GM VIAL IV SCH (05:24)
[2021-09-19 06:39] LABS: Hematocrit 33.9 % (40.1-51.0); Hemoglobin 11.2 g/dL (13.7-17.5)
[2021-09-19 07:17] LABS: ALT/SGPT 101 U/L (<40); AST/SGOT 138 U/L (<40); Albumin 3.8 gm/dL (3.2-5.2); Albumin/Globulin Ratio 2.2 (1.0-2.3); Alkaline Phosphatase 98 U/L (39-117); Bilirubin,Direct 0.9 mg/dL (<0.3); Bilirubin,Total 1.3 mg/dL (0.1-1.0); Blood Urea Nitrogen 56 mg/dL (8-23); Calcium 8.9 mg/dL (8.6-10.4); Carbon Dioxide 25 mmol/L (22-30); Chloride 96 mmol/L (96-108); Globulin 1.7 gm/dL (2.2-3.7); Glomerular Filtration Rate 26; Glucose 98 mg/dL (70-105); Lactate Dehydrogenase 244 U/L (135-225); Triglycerides 34 mg/dL (<150); Uric Acid 12.9 mg/dL (2.5-8.0)
[2021-09-19] MEDS: TORSEMIDE 10 MG TABLET PO SCH ×2 (08:11→20:07)
[2021-09-19] MEDS: FISH OIL 1,000 MG CAPSULE PO SCH ×2 (08:11→20:07)
[2021-09-19] MEDS: POLYETHYLENE GLYCOL 3350 17 GM PACKET PO SCH (08:11)
[2021-09-19] MEDS: METOPROLOL SUCCINATE 25 MG TAB.XL.24H PO SCH (08:12)
[2021-09-19] MEDS: MULTIVIT,THER IRON,CA,FA & MIN 1 TABLET PO SCH (08:12)
[2021-09-19] MEDS: ALLOPURINOL 100 MG TABLET PO SCH (08:12)
[2021-09-19] MEDS: DOCUSATE SODIUM 100 MG CAPSULE PO SCH ×2 (08:12→20:08)
[2021-09-19] MEDS: ASCORBIC ACID 500 MG TABLET PO SCH ×2 (08:12→20:07)
[2021-09-19] MEDS: SPIRONOLACTONE 25 MG TABLET PO SCH (08:13)
[2021-09-19] MEDS: MAGNESIUM OXIDE 400 MG TABLET PO SCH (08:13)
--- NOTE | 2021-09-19 19:30 | Internal Med Progress Note ---
SUBJECTIVE Subjective Patient information: Note initiated : 09/19/21 at 7:29 pm Service Date, if different from initiated Date: [] Patient: Zaid Marroquin 85 y/o M admitted on 09/17/21 for Fall R hip pain. Chief Complaint: Follow-up hip fracture Interval history: Mr. Marroquin is a 85 year old M history of atrial fibrillation's, congestive heart failure, chronic kidney disease stage III, dyslipidemia, BPH, presenting with fall with right hip fractures. Yesterday evening patient was ambulating in his house and he lost his balance and he fell out landed on his right side of the body. EMS brought patient to our ED for further evaluations. Vital signs at ED presentations grossly within normal limits. Labs significant for lack of leukocytosis with WBC 8.4, H&H 11.5 and 36.5, respectively. Electrolytes within normal limits. POC serum creatinine 2.[address] head without contrast no acute changes. Hip x-ray showing right hip intertrochanteric fractures. Orthopedic surgeon Dr. Thomas consulted for potential surgery. Patient is currently complaining of 10 out of 10, constant, sharp right lateral hip pain. 09/18: Serum potassium 5.4. Denies any right hip pain currently. Denies any chest pain or palpitation. Scheduled for right hip nail placement this afternoon by Dr. Thomas. 09/19: Had rough night Tuesday evening postoperatively. Feels much better this morning. Walked with physical therapy. Decreased urine output overnight, responded to furosemide. LFTs elevated, suspect secondary to congestive heart failure. Significantly elevated phosphorus and uric acid today. Constitutional Vitals: Vital Signs Temp Pulse Resp BP Pulse Ox 97.7 F 59 L 18 96/62 97 09/19/21 12:00 09/19/21 12:00 09/19/21 12:00 09/19/21 12:00 09/19/21 12:00 Period Temp Pulse Resp BP Sys/Rodríguez Pulse Ox Last 24 Hr 97.1 F-98.0 F 59-86 18-20 89-107/61-71 96-100 Intake and Output 09/19/21 09/19/21 09/19/21 05:59 13:59 21:59 Intake Total 225 1000 800 Output Total 175 350 Balance 50 1000 450 Intake & Output: Intake & Output 1009/19/21 09/19/21 05:59 13:59 21:59 Intake Total 225 1000 800 Output Total 175 350 Balance 50 1000 450 Intake: IV 1000 Lactated Ringers 1,000 ml @ 100 1000 mls/hr IV .Q10H [facility] Rx#: [id number] Oral 225 800 Output: Urine Catheter Amount 175 350 Other: Meal Breakfast Percent of Meal Consumed 75% Feeding Ability Independent Urine Appearance Clear Clear Urine Color Light Chani Bright Yellow GENERAL: Sitting up in chair no acute distress RESPIRATORY: Lungs clear bilaterally CARDIOVASCULAR: Regular rate and rhythm with 2/6 systolic murmur ABDOMEN: Soft EXTREMITIES: Right lower extremity neurovascularly intact, no edema NEURO: Alert, oriented person, place and situation. Able to ambulate with physical therapy. OBJ DATA Labs CBC & Chem 7: 09/19/21 05:25 09/19/21 05:25 Labs: Abnormal Lab Results 09/19/21 09/19/21 09/18/21 05:25 05:25 05:14 RBC Hgb 11.2 L Hct 33.9 L POC Hct RDW MPV Neut % (Auto) Lymph % (Auto) [place] % (Auto) Lymph # (Auto) [place] # (Auto) Potassium 5.4 H 5.4 H POC BUN BUN 56 H 53 H Creatinine 2.2 H 2.0 H POC Creatinine Glucose 107 H POC Glucose Uric Acid 12.9 H POC WB Ioniz Calcium Phosphorus 6.0 H* Magnesium 2.6 H Total Bilirubin 1.3 H Direct Bilirubin 0.9 H GGT 74 H AST 138 H ALT 101 H Lactate Dehydrogenase 244 H Total Protein 5.5 L Globulin 1.7 L Urine Appearance Urine Protein 09/18/21 09/17/21 09/17/21 05:14 04:42 04:42 RBC 3.83 L 3.97 L Hgb 11.2 L 11.5 L Hct 35.4 L 36.5 L POC Hct 37 L RDW 17.2 H 17.2 H MPV 10.7 H 10.7 H Neut % (Auto) 79.7 H Lymph % (Auto) 9.7 L 10.9 L [place] % (Auto) 12.1 H Lymph # (Auto) 0.91 L 0.92 L [place] # (Auto) 1.14 H Potassium POC BUN 45 H BUN Creatinine POC Creatinine 2.0 H Glucose POC Glucose 122 H Uric Acid POC WB Ioniz Calcium 1.08 L Phosphorus Magnesium Total Bilirubin Direct Bilirubin GGT AST ALT Lactate Dehydrogenase Total Protein Globulin Urine Appearance Urine Protein 09/17/21 00:20 RBC Hgb Hct POC Hct RDW MPV Neut % (Auto) Lymph % (Auto) [place] % (Auto) Lymph # (Auto) [place] # (Auto) Potassium POC BUN BUN Creatinine POC Creatinine Glucose POC Glucose Uric Acid POC WB Ioniz Calcium Phosphorus Magnesium Total Bilirubin Direct Bilirubin GGT AST ALT Lactate Dehydrogenase Total Protein Globulin Urine Appearance Hazy A Urine Protein 30 A Meds: Medications Acetaminophen (Acetaminophen 325 Mg Tablet) 650 mg PO Q6HP PRN; Protocol PRN Reason: Per Pain Protocol/Fever > 101 Hydrocodone Bitart/Acetaminophen (Hydrocodone/Apap 10/325mg Tablet) 0 tab PO Q4HP PRN; Protocol PRN Reason: Per Pain Protocol Last Admin: 09/19/21 13:58 Dose: 1 tab Documented by: Albuterol/Ipratropium (Ipratropium/Albuterol 3 Ml Ampul.Neb) 3 ml NEB Q4HRT PRN PRN Reason: Wheezing Allopurinol (Allopurinol 100 Mg Tablet) 100 mg PO DAILY COUNTS INCLUDE 234 BEDS AT THE [facility] Last Admin: 09/19/21 08:12 Dose: 100 mg Documented by: Ascorbic Acid (Ascorbic Acid 500 Mg Tablet) 1,000 mg PO BID COUNTS INCLUDE 234 BEDS AT THE [facility] Last Admin: 09/19/21 08:12 Dose: 1,000 mg Documented by: Bisacodyl (Bisacodyl 10 Mg Supp.Rect) 10 mg [place] Q2-3DAYS PRN PRN Reason: Constipation Docusate Sodium (Docusate Sodium 100 Mg Capsule) 100 mg PO BID COUNTS INCLUDE 234 BEDS AT THE [facility] Last Admin: 09/19/21 08:12 Dose: 100 mg Documented by: Fish Oil (Fish Oil 1,000 Mg Capsule) 1,000 mg PO BID COUNTS INCLUDE 234 BEDS AT THE [facility] Last Admin: 09/19/21 08:11 Dose: 1,000 mg Documented by: Iron Carb/Multivit/[place]/Folic Acid (Multivit,Ther Iron,Ca,Fa & Min 1 Tablet) 1 tab PO DAILY COUNTS INCLUDE 234 BEDS AT THE [facility] Last Admin: 09/19/21 08:12 Dose: 1 tab Documented by: Magnesium Hydroxide (Magnesium Hydroxide 30 Ml Oral.Susp) 30 ml PO BIDP PRN PRN Reason: Constipation Magnesium Oxide (Magnesium Oxide 400 Mg Tablet) 400 mg PO QDAY COUNTS INCLUDE 234 BEDS AT THE [facility] Last Admin: 09/19/21 08:13 Dose: 400 mg Documented by: Methocarbamol (Methocarbamol 750 Mg Tablet) 750 mg PO Q6HP PRN PRN Reason: Muscle Spasm Metoprolol Succinate (Metoprolol Succinate 25 Mg Tab.Xl.24h) 12.5 mg PO QDAY COUNTS INCLUDE 234 BEDS AT THE [facility] Last Admin: 09/19/21 08:12 Dose: 12.5 mg Documented by: Morphine Sulfate (Morphine 4 Mg/Ml Vial) 4 mg IV Q4HP PRN; Protocol PRN Reason: Per Pain Protocol Last Admin: 09/18/21 10:02 Dose: 4 mg Documented by: Morphine Sulfate (Morphine 4 Mg/Ml Vial) 0 mg IV Q1HP PRN; Protocol PRN Reason: Per Pain Protocol Ondansetron HCl (Ondansetron 4 Mg/2 Ml Vial) 4 mg IV Q6HP PRN PRN Reason: Nausea And Vomiting Ondansetron HCl (Ondansetron 4 Mg/2 Ml Vial) 4 mg IV Q6HP PRN PRN Reason: Nausea And Vomiting Ondansetron HCl (Ondansetron 4 Mg Odt Tablet) 4 mg SL Q4HP PRN; Protocol PRN Reason: Nausea And Vomiting Oxycodone HCl (Oxycodone Hcl 5 Mg Tablet) 5 mg PO Q4HP PRN; Protocol PRN Reason: Per Pain Protocol Last Admin: 09/18/21 00:01 Dose: 5 mg Documented by: Polyethylene Glycol (Polyethylene Glycol 3350 17 Gm Packet) 17 gm PO QDAY COUNTS INCLUDE 234 BEDS AT THE [facility] Last Admin: 09/19/21 08:11 Dose: 17 gm Documented by: Polyethylene Glycol (Polyethylene Glycol 3350 17 Gm Packet) 17 gm PO DAILYP PRN PRN Reason: Constipation Scopolamine (Scopolamine 1 Patch Patch) 1 patch TOPICAL PREOP PRN PRN Reason: Nausea And Vomiting Senna (Sennosides 1 Tablet) 2 tab PO HS COUNTS INCLUDE 234 BEDS AT THE [facility] Last Admin: 09/18/21 20:36 Dose: 2 tab Documented by: Sodium Biphosphate/Sodium Phosphate (Fleets Adult Enema) 1 dose [place] Q3-4DAYS PRN PRN Reason: Constipation Sodium Chloride (0.9 % Sodium Chloride 10 Ml Syringe) 10 ml IV Q8 COUNTS INCLUDE 234 BEDS AT THE [facility] Last Admin: 09/19/21 13:53 Dose: Not Given Documented by: Spironolactone (Spironolactone 25 Mg Tablet) 25 mg PO QDAY COUNTS INCLUDE 234 BEDS AT THE [facility] Last Admin: 09/19/21 08:13 Dose: 25 mg Documented by: Throat Lozenges (Benzocaine/Menthol 1 Lozenge) 1 lozenge PO PRN PRN PRN Reason: Sore Throat Torsemide (Torsemide 10 Mg Tablet) 20 mg PO BID [facility] Last Admin: 09/19/21 08:11 Dose: 20 mg Documented by: Trazodone HCl (Trazodone Hcl 100 Mg Tablet) 100 mg PO QHS PRN PRN Reason: Insomnia Last Admin: 09/18/21 00:56 Dose: 100 mg Documented by: Zolpidem Tartrate (Zolpidem 5 Mg Tablet) 5 mg PO HSP PRN PRN Reason: Insomnia A/P Narrative A/P Narrative: Assessment: Right hip intertrochanteric fracture, closed: -Status post ORIF 09/[address] Thomas -Working with physical therapy 09/19 Atrial fibrillation, status post cardiac pacemaker placement -Recommend holding Eilquis at least 2 to 3 days prior to orthopedic surgeries -Metoprolol succinate 12.5 mg p.o. daily Chronic heart failure with reduced ejection fraction -EF <20% -On valsartan, torsemide and spironolactone -On metoprolol succinate Dyslipidemia: -On omega-3 fish oil BPH -On tamsulosin Normocytic normochromic anemia -Possibly related to CKD -We will follow H&H postoperatively -Plan to transfuse for hemoglobin less than 7.0 Chronic renal disease stage III: -Creatinine up to 2.2 on 09/19 -Baseline creatinine in 2.0 range Elevated liver enzymes -No abdominal symptoms to suggest acute issue -Suspect may be related to chronic heart failure and passive congestion Hyperkalemia-RESOLVED Plan: * Continue with skilled therapies * Pain control * Continue to hold apixaban * Continue metoprolol succinate * Continue with valsartan * Resume home torsemide * Hold spironolactone with hyperkalemia, potentially resume 09/20 * Advance activity as tolerated * Continue chronic home medications Time Spent With Patient Time: Total time spent is greater than 50% in coordination of care (as documented) at patient's floor/unit and/or counseling patient: Total time spent with greater than 50% in coordination of care (as documented) at patient's floor/unit and/or counseling patient:: 25 - 35 minutes
[2021-09-19] MEDS: SENNOSIDES 1 TABLET PO SCH (20:08)
[2021-09-19] MEDS: traZODone HCL 100 MG TABLET PO PRN (20:08)
[2021-09-19] MEDS: oxyCODONE HCL 5 MG TABLET PO PRN (23:13)
[2021-09-20] MEDS: oxyCODONE HCL 5 MG TABLET PO PRN (03:35)
[2021-09-20 06:46] LABS: Hematocrit 36.4 % (40.1-51.0); Hemoglobin 11.5 g/dL (13.7-17.5)
[2021-09-20 07:05] LABS: Blood Urea Nitrogen 79 mg/dL (8-23); Calcium 8.9 mg/dL (8.6-10.4); Carbon Dioxide 22 mmol/L (22-30); Chloride 87 mmol/L (96-108); Glomerular Filtration Rate 20; Glucose 127 mg/dL (70-105)
--- NOTE | 2021-09-20 08:07 | Internal Med Progress Note ---
SUBJECTIVE Subjective Patient information: Note initiated : 09/20/21 at 8:07 am Service Date, if different from initiated Date: [] Patient: Zaid Marroquin a 85 y/o M admitted on 09/17/21 for Fall R hip pain. Chief Complaint: Follow-up hip fracture Interval history: Mr. Marroquin is a 85 year old M history of atrial fibrillation's, congestive heart failure, chronic kidney disease stage III, dyslipidemia, BPH, presenting with fall with right hip fractures. Yesterday evening patient was ambulating in his house and he lost his balance and he fell out landed on his right side of the body. EMS brought patient to our ED for further evaluations. Vital signs at ED presentations grossly within normal limits. Labs significant for lack of leukocytosis with WBC 8.4, H&H 11.5 and 36.5, respectively. Electrolytes within normal limits. POC serum creatinine 2.[address] head without contrast no acute changes. Hip x-ray showing right hip intertrochanteric fractures. Orthopedic surgeon Dr. Thomas consulted for potential surgery. Patient is currently complaining of 10 out of 10, constant, sharp right lateral hip pain. 09/18: Serum potassium 5.4. Denies any right hip pain currently. Denies any chest pain or palpitation. Scheduled for right hip nail placement this afternoon by Dr. Thomas. 09/19: Had rough night Tuesday evening postoperatively. Feels much better this morning. Walked with physical therapy. Decreased urine output overnight, responded to furosemide. LFTs elevated, suspect secondary to congestive heart failure. Significantly elevated phosphorus and uric acid today. 09/20: Some confusion last night, which persists this morning. Patient seen with son and daughter at bedside. Appetite is not good, they are encouraging him to eat. Creatinine up to 2.7 and potassium is 5.5. Intake has been greater than output for the last few days, concern for decompensated heart failure. Had been on his home torsemide dose. Constitutional Vitals: Vital Signs Temp Pulse Resp BP Pulse Ox 97.1 F 81 20 89/57 94 09/20/21 03:40 09/20/21 03:40 09/20/21 03:40 09/20/21 03:40 09/20/21 03:40 Period Temp Pulse Resp BP Sys/Rodríguez Pulse Ox Last 24 Hr 97.1 F-97.7 F 59-81 18-20 88-96/57-62 92-97 Intake and Output 09/19/21 09/20/21 09/20/21 21:59 05:59 13:59 Intake Total 800 200 Output Total 350 150 Balance 450 50 Weight 173 lb 1.6 oz Intake & Output: Intake & Output 09/19/21 09/20/21 09/20/21 21:59 05:59 13:59 Intake Total 800 200 Output Total 350 150 Balance 450 50 Weight 173 lb 1.6 oz Intake: Oral 800 200 Output: Urine Catheter Amount 350 150 Other: Urine Appearance Clear Clear Straight Clear Urine Color Bright Yellow Dark Yellow Straight Dark Yellow GENERAL: Sitting up in chair at bedside, trying to eat breakfast RESPIRATORY: Diminished at the bases, no rales CARDIOVASCULAR: Regular with murmur ABDOMEN: Active bowel sounds EXTREMITIES: No peripheral edema, right lower extremity neurovascularly intact NEURO: Alert, oriented to person, place, situation, responses seem to be a little slow today. Mild to moderate generalized weakness. OBJ DATA Labs CBC & Chem 7: 09/20/21 05:43 09/20/21 05:44 Labs: Abnormal Lab Results 09/20/21 09/20/21 09/19/21 05:44 05:43 05:25 RBC Hgb 11.5 L Hct 36.4 L RDW MPV Lymph % (Auto) [place] % (Auto) Lymph # (Auto) [place] # (Auto) Sodium 128 L Potassium 5.5 H 5.4 H Chloride 87 L Anion Gap 19.0 H BUN 79 H 56 H Creatinine 2.7 H 2.2 H Glucose 127 H Uric Acid 12.9 H Phosphorus 6.0 H* Magnesium 2.6 H Total Bilirubin 1.3 H Direct Bilirubin 0.9 H GGT 74 H AST 138 H ALT 101 H Lactate Dehydrogenase 244 H Total Protein 5.5 L Globulin 1.7 L Urine Appearance Urine Protein 09/19/21 09/18/21 09/18/21 05:25 05:14 05:14 RBC 3.83 L Hgb 11.2 L 11.2 L Hct 33.9 L 35.4 L RDW 17.2 H MPV 10.7 H Lymph % (Auto) 9.7 L [place] % (Auto) 12.1 H Lymph # (Auto) 0.91 L [place] # (Auto) 1.14 H Sodium Potassium 5.4 H Chloride Anion Gap BUN 53 H Creatinine 2.0 H Glucose 107 H Uric Acid Phosphorus Magnesium Total Bilirubin Direct Bilirubin GGT AST ALT Lactate Dehydrogenase Total Protein Globulin Urine Appearance Urine Protein 09/17/21 00:20 RBC Hgb Hct RDW MPV Lymph % (Auto) [place] % (Auto) Lymph # (Auto) [place] # (Auto) Sodium Potassium Chloride Anion Gap BUN Creatinine Glucose Uric Acid Phosphorus Magnesium Total Bilirubin Direct Bilirubin GGT AST ALT Lactate Dehydrogenase Total Protein Globulin Urine Appearance Hazy A Urine Protein 30 A Meds: Medications Acetaminophen (Acetaminophen 325 Mg Tablet) 650 mg PO Q6HP PRN; Protocol PRN Reason: Per Pain Protocol/Fever > 101 Hydrocodone Bitart/Acetaminophen (Hydrocodone/Apap 10/325mg Tablet) 0 tab PO Q4HP PRN; Protocol PRN Reason: Per Pain Protocol Last Admin: 09/19/21 13:58 Dose: 1 tab Documented by: Albuterol/Ipratropium (Ipratropium/Albuterol 3 Ml Ampul.Neb) 3 ml NEB Q4HRT PRN PRN Reason: Wheezing Allopurinol (Allopurinol 100 Mg Tablet) 100 mg PO DAILY [facility] Last Admin: 09/19/21 08:12 Dose: 100 mg Documented by: Ascorbic Acid (Ascorbic Acid 500 Mg Tablet) 1,000 mg PO BID [facility] Last Admin: 09/19/21 20:07 Dose: 1,000 mg Documented by: Bisacodyl (Bisacodyl 10 Mg Supp.Rect) 10 mg [place] Q2-3DAYS PRN PRN Reason: Constipation Docusate Sodium (Docusate Sodium 100 Mg Capsule) 100 mg PO BID [facility] Last Admin: 09/19/21 20:08 Dose: 100 mg Documented by: Fish Oil (Fish Oil 1,000 Mg Capsule) 1,000 mg PO BID [facility] Last Admin: 09/19/21 20:07 Dose: 1,000 mg Documented by: Furosemide (Furosemide 40 Mg/4 Ml Vial) 40 mg IV BIDD [facility] Iron Carb/Multivit/Construction Operations Manager/Folic Acid (Multivit,Ther Iron,Ca,Fa & Min 1 Tablet) 1 tab PO DAILY [facility] Last Admin: 09/19/21 08:12 Dose: 1 tab Documented by: Magnesium Hydroxide (Magnesium Hydroxide 30 Ml Oral.Susp) 30 ml PO BIDP PRN PRN Reason: Constipation Magnesium Oxide (Magnesium Oxide 400 Mg Tablet) 400 mg PO QDAY [facility] Last Admin: 09/19/21 08:13 Dose: 400 mg Documented by: Methocarbamol (Methocarbamol 750 Mg Tablet) 750 mg PO Q6HP PRN PRN Reason: Muscle Spasm Metoprolol Succinate (Metoprolol Succinate 25 Mg Tab.Xl.24h) 12.5 mg PO QDAY [facility] Last Admin: 09/19/21 08:12 Dose: 12.5 mg Documented by: Morphine Sulfate (Morphine 4 Mg/Ml Vial) 4 mg IV Q4HP PRN; Protocol PRN Reason: Per Pain Protocol Last Admin: 09/18/21 10:02 Dose: 4 mg Documented by: Morphine Sulfate (Morphine 4 Mg/Ml Vial) 0 mg IV Q1HP PRN; Protocol PRN Reason: Per Pain Protocol Ondansetron HCl (Ondansetron 4 Mg/2 Ml Vial) 4 mg IV Q6HP PRN PRN Reason: Nausea And Vomiting Ondansetron HCl (Ondansetron 4 Mg/2 Ml Vial) 4 mg IV Q6HP PRN PRN Reason: Nausea And Vomiting Ondansetron HCl (Ondansetron 4 Mg Odt Tablet) 4 mg SL Q4HP PRN; Protocol PRN Reason: Nausea And Vomiting Oxycodone HCl (Oxycodone Hcl 5 Mg Tablet) 5 mg PO Q4HP PRN; Protocol PRN Reason: Per Pain Protocol Last Admin: 09/20/21 03:35 Dose: 5 mg Documented by: Polyethylene Glycol (Polyethylene Glycol 3350 17 Gm Packet) 17 gm PO QDAY [facility] Last Admin: 09/19/21 08:11 Dose: 17 gm Documented by: Polyethylene Glycol (Polyethylene Glycol 3350 17 Gm Packet) 17 gm PO DAILYP PRN PRN Reason: Constipation Scopolamine (Scopolamine 1 Patch Patch) 1 patch TOPICAL PREOP PRN PRN Reason: Nausea And Vomiting Senna (Sennosides 1 Tablet) 2 tab PO HS [facility] Last Admin: 09/19/21 20:08 Dose: 2 tab Documented by: Sodium Biphosphate/Sodium Phosphate (Fleets Adult Enema) 1 dose [place] Q3-4DAYS PRN PRN Reason: Constipation Sodium Chloride (0.9 % Sodium Chloride 10 Ml Syringe) 10 ml IV Q8 [facility] Last Admin: 09/19/21 20:08 Dose: 10 ml Documented by: Spironolactone (Spironolactone 25 Mg Tablet) 25 mg PO QDAY [facility] Last Admin: 09/19/21 08:13 Dose: 25 mg Documented by: Throat Lozenges (Benzocaine/Menthol 1 Lozenge) 1 lozenge PO PRN PRN PRN Reason: Sore Throat Trazodone HCl (Trazodone Hcl 100 Mg Tablet) 100 mg PO QHS PRN PRN Reason: Insomnia Last Admin: 09/19/21 20:08 Dose: 100 mg Documented by: Zolpidem Tartrate (Zolpidem 5 Mg Tablet) 5 mg PO HSP PRN PRN Reason: Insomnia A/P Narrative A/P Narrative: Assessment: Right hip intertrochanteric fracture, closed: -Status post ORIF 09/[address] Thomas -Working with physical therapy 09/19 Atrial fibrillation, status post cardiac pacemaker placement -Eilquis held at least 2 to 3 days prior to orthopedic surgery -Metoprolol succinate 12.5 mg p.o. daily Chronic heart failure with reduced ejection fraction -EF <20% -On valsartan, torsemide and spironolactone -On metoprolol succinate Dyslipidemia: -On omega-3 fish oil BPH -On tamsulosin Normocytic normochromic anemia -Possibly related to CKD -We will follow H&H postoperatively -Plan to transfuse for hemoglobin less than 7.0 Chronic renal disease stage III: -Creatinine up to 2.2 on 09/19, up to 2.7 on 09/20 -Concern for decompensated heart failure and cardiorenal syndrome -Baseline creatinine in 2.0 range Elevated liver enzymes -No abdominal symptoms to suggest acute issue -Suspect may be related to chronic heart failure and passive congestion Hyperkalemia -Noted a.m. 09/18 -Recurrent potassium 5.5 on 09/20 -Suspect secondary to CKD, heart failure and spironolactone therapy Plan: * Discontinue torsemide, begin diuresis with furosemide * Recheck BMP at 1500, evaluate creatinine and potassium * Continue with metoprolol succinate and valsartan * Hold spironolactone due to recurrent hyperkalemia, likely would benefit with reintroduction prior to discharge given LVEF * Continue with skilled therapies * Pain control * Continue to hold apixaban * Advance activity as tolerated * Continue chronic home medications Time Spent With Patient Time: Total time spent is greater than 50% in coordination of care (as documented) at patient's floor/unit and/or counseling patient:
[2021-09-20] MEDS: MULTIVIT,THER IRON,CA,FA & MIN 1 TABLET PO SCH (08:23)
[2021-09-20] MEDS: DOCUSATE SODIUM 100 MG CAPSULE PO SCH ×2 (08:23→20:49)
[2021-09-20] MEDS: ASCORBIC ACID 500 MG TABLET PO SCH ×2 (08:23→20:49)
[2021-09-20] MEDS: SPIRONOLACTONE 25 MG TABLET PO SCH (08:23)
[2021-09-20] MEDS: FISH OIL 1,000 MG CAPSULE PO SCH ×2 (08:23→20:49)
[2021-09-20] MEDS: ALLOPURINOL 100 MG TABLET PO SCH (08:24)
[2021-09-20] MEDS: POLYETHYLENE GLYCOL 3350 17 GM PACKET PO SCH (08:24)
[2021-09-20] MEDS: MAGNESIUM OXIDE 400 MG TABLET PO SCH (08:24)
[2021-09-20] MEDS: METOPROLOL SUCCINATE 25 MG TAB.XL.24H PO SCH (08:24)
--- NOTE | 2021-09-20 08:37 | EKG ---
[facility] Test Date: 2021-09-17 Pat Name: Zaid Marroquin Department: ED Room: Gender: Male Software Engineering Manager: : [id number] Requested By: Zaire Franks Order Number: [id number] Reading MD: Abiel Glover Measurements Intervals [place] Rate: 83 P: 94 MA: 148 QRS: 265 QRSD: 208 T: 135 QT: 484 QTc: 569 Interpretive Statements VENTRICULAR-PACED COMPLEXES Not significantly changed from prior Electronically Signed On 09-20-2021 8:37:30 PDT by Abiel Glover /[id number]
[2021-09-20] MEDS: 0.9 % SODIUM CHLORIDE 10 ML SYRINGE IV SCH ×3 (08:45→20:48)
[2021-09-20] MEDS ORDERED: FUROSEMIDE 40 MG/4 ML VIAL IV SCH (16:00)
[2021-09-20 16:49] LABS: Blood Urea Nitrogen 84 mg/dL (8-23); Calcium 8.7 mg/dL (8.6-10.4); Carbon Dioxide 21 mmol/L (22-30); Chloride 86 mmol/L (96-108); Glomerular Filtration Rate 18; Glucose 134 mg/dL (70-105)
[2021-09-20] MEDS ORDERED: FUROSEMIDE 100 MG/10 ML VIAL IV ONE (17:34)
[2021-09-20] MEDS: SENNOSIDES 1 TABLET PO SCH (20:49)
[2021-09-20] MEDS ORDERED: SODIUM BICARBONATE 650 MG TABLET PO SCH (21:00)
[2021-09-20] MEDS ORDERED: morphine 4 MG/ML VIAL IV PRN (23:05)
[2021-09-20] MEDS: LORazepam 2 MG/ML VIAL IV PRN (23:22)
[2021-09-20] MEDS ORDERED: LORazepam 2 MG/ML VIAL ONE (23:24)
--- NOTE | 2021-09-20 23:28 | Internal Med Progress Note ---
SUBJECTIVE Subjective Patient information: Note initiated : 09/20/21 at 11:17 pm Service Date, if different from initiated Date: [] Patient: Zaid Marroquin 85 y/o M admitted on 09/17/21 for Fall R hip pain. Chief Complaint: agitation, itching, resp distress 85 yo WM previously on apixaban for afib admitted for and underwent right hip pinning. Pt says he doesnt desire further evaluation or exam. son and daugther at bedside helped me to convince pt to allow cardiopulmonary exam. Constitutional Vitals: Vital Signs Temp Pulse Resp BP Pulse Ox 97.6 F 80 20 81/54 98 09/20/21 18:55 09/20/21 18:55 09/20/21 18:55 09/20/21 18:55 09/20/21 18:55 Period Temp Pulse Resp BP Sys/Rodríguez Pulse Ox Last 24 Hr 97.1 F-98.0 F 78-81 18-20 81-110/54-62 94-98 Intake and Output 09/20/21 09/20/21 09/21/21 13:59 21:59 05:59 Intake Total 200 Output Total 400 Balance -200 Weight 78.653 kg Patient Weight 09/21/21 05:59 Weight 78.653 kg Intake & Output: Intake & Output 09/20/21 09/20/21 09/21/21 13:59 21:59 05:59 Intake Total 200 Output Total 400 Balance -200 Weight 78.653 kg Intake: Oral 200 Output: Urine Catheter Amount 400 Other: Urine Appearance Clear Straight Clear Urine Color Straight Light Chani OBJ DATA Labs CBC & Chem 7: 09/20/21 05:43 09/20/21 15:30 Labs: Abnormal Lab Results 09/20/21 09/20/21 09/20/21 15:30 05:44 05:43 RBC Hgb 11.5 L Hct 36.4 L RDW MPV Lymph % (Auto) [place] % (Auto) Lymph # (Auto) [place] # (Auto) Sodium 129 L 128 L Potassium 5.9 H* 5.5 H Chloride 86 L 87 L Carbon Dioxide 21 L Anion Gap 22.0 H 19.0 H BUN 84 H 79 H Creatinine 3.0 H 2.7 H Glucose 134 H 127 H Uric Acid Phosphorus Magnesium Total Bilirubin Direct Bilirubin GGT AST ALT Lactate Dehydrogenase Total Protein Globulin Urine Appearance Urine Protein 09/19/21 09/19/21 09/18/21 05:25 05:25 05:14 RBC Hgb 11.2 L Hct 33.9 L RDW MPV Lymph % (Auto) [place] % (Auto) Lymph # (Auto) [place] # (Auto) Sodium Potassium 5.4 H 5.4 H Chloride Carbon Dioxide Anion Gap BUN 56 H 53 H Creatinine 2.2 H 2.0 H Glucose 107 H Uric Acid 12.9 H Phosphorus 6.0 H* Magnesium 2.6 H Total Bilirubin 1.3 H Direct Bilirubin 0.9 H GGT 74 H AST 138 H ALT 101 H Lactate Dehydrogenase 244 H Total Protein 5.5 L Globulin 1.7 L Urine Appearance Urine Protein 09/18/21 09/17/21 05:14 00:20 RBC 3.83 L Hgb 11.2 L Hct 35.4 L RDW 17.2 H MPV 10.7 H Lymph % (Auto) 9.7 L [place] % (Auto) 12.1 H Lymph # (Auto) 0.91 L [place] # (Auto) 1.14 H Sodium Potassium Chloride Carbon Dioxide Anion Gap BUN Creatinine Glucose Uric Acid Phosphorus Magnesium Total Bilirubin Direct Bilirubin GGT AST ALT Lactate Dehydrogenase Total Protein Globulin Urine Appearance Hazy A Urine Protein 30 A GEN WDWN thin chronically ill WM. ENT tongue enlarge full in mouth and irregular CV RRR controlled Lungs CTA no crackles neck JVP 9 cm Calves no edema Meds: Medications Albuterol/Ipratropium (Ipratropium/Albuterol 3 Ml Ampul.Neb) 3 ml NEB Q4HRT PRN PRN Reason: Wheezing Bisacodyl (Bisacodyl 10 Mg Supp.Rect) 10 mg UT Q2-3DAYS PRN PRN Reason: Constipation Lorazepam (Lorazepam 2 Mg/Ml Vial) 0 mg IV Q1HP PRN; Protocol PRN Reason: ANXIETY/SEDATION Morphine Sulfate (Morphine 4 Mg/Ml Vial) 4 mg IV Q4HP PRN; Protocol PRN Reason: Per Pain Protocol Last Admin: 09/18/21 10:02 Dose: 4 mg Documented by: Morphine Sulfate (Morphine 4 Mg/Ml Vial) 2 - 6 mg IV Q1HP PRN; Protocol PRN Reason: Per Pain Protocol Ondansetron HCl (Ondansetron 4 Mg/2 Ml Vial) 4 mg IV Q6HP PRN PRN Reason: Nausea And Vomiting Oxycodone HCl (Oxycodone Hcl 5 Mg Tablet) 5 mg PO Q4HP PRN; Protocol PRN Reason: Per Pain Protocol Last Admin: 09/20/21 03:35 Dose: 5 mg Documented by: Scopolamine (Scopolamine 1 Patch Patch) 1 patch TOPICAL PREOP PRN PRN Reason: Nausea And Vomiting Sodium Chloride (0.9 % Sodium Chloride 10 Ml Syringe) 10 ml IV Q8 RAYMON Last Admin: 09/20/21 20:48 Dose: 10 ml Documented by: Throat Lozenges (Benzocaine/Menthol 1 Lozenge) 1 lozenge PO PRN PRN PRN Reason: Sore Throat A/P Assessment and plan (1) Hyperkalemia: Status: Acute Comment: bicarb and diuretics given earlier but pt overall doing poorly. Pt son and tiburcio ghter agreeable to pts desire for comfort care so will proceed with comfort care orders. (2) LIANG (acute kidney injury): Status: Acute Comment: LIANG on CKD 3 (3) Closed hip fracture: Status: Acute Comment: repaired. not eating and barely drinking. not able to do therapy (4) Congestive heart failure: Status: Acute Comment: EF 20% with cardiorenal LIANG. Time Spent With Patient Time: Total time spent is greater than 50% in coordination of care (as documented) at patient's floor/unit and/or counseling patient: we discussed option of judicious fluid resuscitation and resumption anticoagulation. Pt and family choose comfort care. medications changed for this goal. 55 mins spent in evaluation and coordination of care for this patient today QUALITY VTE Contraindication No VTE Prophylaxis: Drug declined by patient
[2021-09-21] MEDS: LORazepam 2 MG/ML VIAL IV PRN ×2 (01:03→11:36)
[2021-09-21] MEDS ORDERED: LORazepam 2 MG/ML VIAL ONE (01:05)
[2021-09-21] MEDS: morphine 4 MG/ML VIAL IV PRN ×2 (01:36→12:44)
[2021-09-21] MEDS ORDERED: 0.9 % SODIUM CHLORIDE 10 ML SYRINGE IV SCH (06:00)
[2021-09-21] MEDS: 0.9 % SODIUM CHLORIDE 10 ML SYRINGE IV SCH ×2 (11:00→17:10)
--- NOTE | 2021-09-21 15:32 | Death Note ---
Discharge Sum: Prov Provider Patient information: Note initiated : 09/21/21 at 3:31 pm Service Date, if different from initiated Date: [] Patient: Zaid Marroquin 85 y/o M admitted on 09/17/21 for Fall R hip pain. Chief Complaint: [right hip pain] Primary care physician: Vahid Vivas MD Consults: 09/17/21 Consult to Physician [CONS] Stat Comment: hip fracture Consulting Provider: Chace Thomas Reason For Exam: Physician to Consult Consult to Physician [CONS] Stat Comment: hip fracture Consulting Provider: Brennan Abraham Reason For Exam: Physician to Consult Discharge Sum: Diag PCOD Cause of : Acute kidney failure NEC Contributing Factors (1) Hyperkalemia: (2) LIANG (acute kidney injury): Contributing factors: CKD 3 Severe combined systolic and diastolic CHF (3) Closed hip fracture: (4) Congestive heart failure: (5) CHF exacerbation: Discharge Sum: Summary Date and Time Date of admission: 09/17/21 08:13 Date of : 09/21/21 Time of : 12:45 Summary Details: 85 yo WM with multiple medical problems including progressive CKD and 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 declining mobility and quality of life at home. Fell and fractured his right hip. Was already a hospice patient but because of painful broken hip. Hospice was revoked. Here he had sob and was diuresed but developed worsening hyperkalemia and hyponatremia. Pt was not eating or drinking fluid adequately. became agitated pulling at clothes, and itchy. Wanted to be let me go. leave me alone. We had family discussion with Annabelle the daughter and also pts son. Was clarified that pt did not desire dialysis nor senior care care (senior living). Quality of life poor. We switched to comfort care last night and he went to sleep after lorazepam and morphine dying peacefully in his sleep today 1245 greater than 30 mins spent in evaluation and coordination of care for this patient today Additional Data Confirmation of as documented by pronouncing clinician: no pulse, no respirations and no heart sounds Family: at bedside Attending/PCP notified?: No Attending physician: Art Dia Was code activated?: No Autopsy requested?: No licensing registration examiner notified?: No Advance directives?: Yes Hospice patient?: Yes
== END 2021-09-21 13:45 | disposition expired | DRG 480 ==
LOC: ED 03:19 → MEDSUR 08:13
PROVIDERS: ADMIT Internal Medicine; ATTEND Internal Medicine